=== PATIENT | male | born 1950 | race Caucasian/White ===

== ENCOUNTER 2017-04-25 12:07 | Emergency (ER) | payer OTHER ==
[~2017-04-25] VITALS: Ht 167.6 cm; Wt 96.0 kg
[~2017-04-25 12:07] MED LIST: ALLO300T2 PO; AMLO-110 PO; ASPCH81 PO; CLOP1TAB15 PO; CRG625 PO; FERR325T51 PO; GLC/500 PO; HMLI SC; INSUINJ; ISOS30TA3 PO; LOSA1TAB PO; LPT20 PO; MULT-506 PO; NTRGSL/4 UT; OMEG10007 PO; PRLSR20 PO; ULT50X PO
[2017-04-25 12:15] VITALS: TEMP 36.5; Ht 167.6 cm; Wt 96.0 kg
[2017-04-25] MEDS ORDERED: ASPI-435 PO (12:29)
[2017-04-25] MEDS ORDERED: HMLNPUC SQ (12:29)
[2017-04-25] MEDS ORDERED: FRRS300 PO (12:29)
[2017-04-25] MEDS ORDERED: INSU100I SQ (12:29)
[2017-04-25] MEDS ORDERED: MoRPHine SULFATE 4 MG/ML 1 ML CARP\\VIAL IV STA (13:31)
[2017-04-25 14:25] LABS: BASO % 0.5 %; BASO ABS # 0.04 K/uL (0-0.2); COMPLETE YES; EOS % 4.4 %; HEMATOCRIT 33.9 % (42-52); IG% 0.3 %; LYMPH % 28.2 %; LYMPH ABS # 2.23 K/uL (1.2-3.4); MEAN CELL VOLUME 95.2 fL (80-100); MEAN CORPUSCULAR HEMOGLOBIN 33.7 pg (25-34); MEAN CORPUSCULAR HGB CONC 35.4 g/dl (32-36); MEAN PLATELET VOLUME 10.3 fL (7.4-10.4); MONO % 7.7 %; NEUT % 58.9 %; PLATELET COUNT 110 K/uL (130-400); RED BLOOD COUNT 3.56 M/uL (4.7-6.1); WHITE BLOOD COUNT 7.91 K/uL (4.8-10.8)
[2017-04-25] MEDS ORDERED: OPTIRAY 320 IV PRN (14:30)
[2017-04-25 14:41] LABS: BUN/CREATININE RATIO 17.9 (10-20); CALCIUM 9.1 mg/dl (8.5-10.1); CREATININE 1.5 mg/dl (0.60-1.40); POTASSIUM 4.6 mmol/L (3.5-5.1)
[2017-04-25 14:44] LABS: ALB/GLOB RATIO 1.1 (0.9-2)
[2017-04-25] MEDS ORDERED: SODIUM CHLORIDE 0.9% 500ML 500 ML IV STA (14:54)
--- NOTE | 2017-04-25 15:41 | DIAGNOSTIC IMAGING REPORT ---
LUMBAR SPINE CT CT DOSE: HISTORY: Back pain TECHNIQUE: Multiaxial CT images of the lumbar spine were performed and reformatted in the sagittal and coronal plane without the use of contrast. COMPARISON: None. FINDINGS: No fractures. No subluxation. Paraspinal soft tissues are unremarkable. Mild disc space L5-S1. Mild to moderate facet osteoarthritis seen throughout the lumbar spine. Endplate osteophytes seen throughout the lumbar spine. IMPRESSION: No fractures within the lumbar spine. Electronically signed by: Salas Gómez M.D. 04/25/2017 3:40 PM Dictated Date/Time: 04/25/2017 3:34 PM
--- NOTE | 2017-04-25 15:49 | DIAGNOSTIC IMAGING REPORT ---
Abdomen and pelvis CTA for AORTIC DISSECTION CT DOSE: 744.67 mGy.cm HISTORY: Back pain. TECHNIQUE: Multiaxial CT images of the abdomen and pelvis were performed both before and after the intravenous administration of contrast to evaluate the aorta. Maximal intensity projection images were also obtained. COMPARISON STUDY: None. FINDINGS: Abdominal aorta is normal in course and caliber. No evidence for an aortic dissection. No significant stenosis within the celiac, right renal, mesenteric, or iliac arteries. There is approximately 80% stenosis at the takeoff of the main left renal artery. There is also a smaller accessory left renal artery which feeds the lower pole. Moderate atherosclerotic plaque within the abdominal aorta. Bilateral cortical renal scarring/thinning. There a few subcentimeter bilateral renal hypodense lesions within largest on the right measuring 8 mm. These are too small to characterize but favor cysts. No hydronephrosis. Normal bladder. The lung bases are clear. Cholecystectomy. The liver, pancreas, spleen, and adrenal glands are unremarkable. No retroperitoneal lymphadenopathy. Colonic diverticulosis. No bowel wall thickening or obstruction. Normal appendix. IMPRESSION: 1. Normal caliber abdominal aorta with no evidence for dissection. 2. Proximal left renal artery stenosis. 3. No bowel wall thickening or obstruction. 4. Colonic diverticulosis. Electronically signed by: Salas Gómez M.D. 04/25/2017 3:48 PM Dictated Date/Time: 04/25/2017 3:41 PM
[2017-04-25] MEDS ORDERED: ONDANSETRON INJ 2 MG/ML 2 ML VIAL IV STA (16:02)
[2017-04-25] MEDS ORDERED: HYDROCODONE/ACETAMOPHEN 5/325MG TAB PO STA (16:33)
[2017-04-25 16:38] VITALS: BP 145/60; PULSE 63; O2SAT 94
--- NOTE | 2017-04-25 16:41 | EMERGENCY ROOM VISIT NOTE ---
History First contact with patient: 13:12 Chief Complaint: BACK PAIN Stated Complaint: BAD BACK PAIN ON RIGHT SIDE History of Present Illness The patient is a 66 year old male who presents to the Emergency Room with complaints of low back pain. He states he has been having mild low back pain for several months, but states this pain became more severe over the past few days. He denies any trauma, falls, heavy lifting or twisting-type injuries. He states the pain is in the center of his back and to the right, worse with movement in certain positions, better with rest, sharp and stabbing, 10/10. He has taken Tylenol for the pain with minimal relief. He has not tried any other medications or therapies. He states he has had pain like this in the past which has usually gotten better on its own and has never been this severe. Patient also complains of some right-sided abdominal discomfort and bloating that started yesterday, as well as occasional nausea.. He reports a history of a right inguinal hernia. He denies any chest pain, shortness of breath, palpitations, dizziness or passing out, numbness or tingling in the legs, weakness in the legs, saddle paresthesias, bowel or bladder dysfunction, dysuria /hematuria, or urinary frequency. Review of Systems A complete 10 point review of systems was reviewed with the patient with pertinent positives and negatives as per history of present illness. All else were negative. Past Medical/Surgical History Medical Problems: (1) LEBRON inhibitor intolerance (2) Asthma (3) Beta-blockers contraindicated (4) Bilateral carotid artery disease (5) Cerebrovascular disease, arteriosclerotic, post-stroke (6) Chest pain (7) CKD (chronic kidney disease), stage III (8) Diabetes (9) Dyslipidemia (10) GERD (gastroesophageal reflux disease) (11) Gout (12) Heart disease (13) HTN (hypertension) (14) Hypertension (15) Obesity (BMI 30.0-34.9) Surgical Problems: (1) H/O colonoscopy (2) H/O esophagogastroduodenoscopy (3) S/P angioplasty with stent (4) S/P hernia repair (5) S/P laparoscopic cholecystectomy Family History Cancer FATHER MOTHER Diabetes mellitus GRANDFATHER GRANDMOTHER FHx: heart disease Hypertension Social History Smoking Status: Never Smoker Marital Status: in relationship Housing Status: lives with significant other Current/Historical Medications Scheduled Allopurinol (Zyloprim), 300 MG PO HS Amlodipine (Norvasc), 5 MG PO QAM Aspirin (Aspirin 81), 81 MG PO QAM Atorvastatin (Atorvastatin Calcium), 20 MG PO HS Carvedilol (Carvedilol), 6.25 MG PO BID Clopidogrel (Plavix), 75 MG PO QAM Diazepam (Valium), 5 MG PO TID Ferrous Sulfate (Ferrous Sulfate), 325 MG PO BID Fish Oil ([place]-3), 1 CAP PO BID Insulin Human NPH (Humulin N), UNITS SQ UD Insulin Lispro (Human) (Humalog), UNITS SQ UD Isosorbide Mononitrate Ext Rel (Imdur Ext Rel), 30 MG PO QAM Losartan Potassium (Cozaar), 25 MG PO QAM Metformin Hcl (Glucophage), 500 MG PO QID Multivitamin (Multivitamin), 1 TAB PO QAM Omeprazole (Prilosec), 20 MG PO NOON Scheduled PRN Hydrocodone/Acetaminophen 5MG/325MG ([place] 5MG/325MG), 1 TABLET PO Q4H PRN for Pain Nitroglycerin (Nitrostat), 0.4 MG UT UD PRN for Chest Pain Tramadol HCl (Tramadol HCl), 50 MG PO Q6H PRN for Pain Allergies Coded Allergies: LEBRON Inhibitors (Verified Allergy, Unknown, COUGH, 04/25/17) Physical Exam Vital Signs Date Time Temp Pulse Resp B/P (MAP) Pulse Ox O2 Delivery O2 Flow Rate FiO2 04/25/17 16:38 63 18 145/60 94 Room Air 04/25/17 16:01 53 16 141/57 95 Room Air 04/25/17 15:25 59 18 141/57 94 Room Air 04/25/17 14:53 49 Room Air 04/25/17 14:37 50 04/25/17 12:15 36.5 100 18 130/60 96 Room Air Physical Exam CONSTITUTIONAL: No acute distress, but appears to be in some pain. Nontoxic- appearing, well-hydrated, and well nourished. Alert and oriented X 4 with normal affect. HEENT: Normocephalic, atraumatic. Pupils equal, round and reactive to light, EOMI. TMs normal. Pharynx normal. Moist mucous membranes. NECK: Supple, full active range of motion without discomfort. RESPIRATORY: Clear to auscultation bilaterally with no wheezing, crackles, rhonchi or stridor. Equal expansion bilaterally. CARDIOVASCULAR: Regular rate and rhythm, 3/6 systolic murmur, no rubs or gallops. Normal peripheral perfusion. No pitting edema. GASTROINTESTINAL: Slightly firm, distended, tender to the right abdomen. No palpable mass, no palpable hernia. Hypoactive bowel sounds. MUSCULOSKELETAL: Full range of motion of all joints without discomfort. No midline tenderness or step-offs of the lumbar spine. Mild tenderness to palpation of the right lumbar paraspinous muscles, no visible spasm noted. Negative straight leg raise bilaterally. INTEGUMENTARY: No rash or other significant dermatologic conditions noted. NEUROLOGIC: Cranial nerves II-XII grossly intact. No focal neurologic deficits noted. Normal strength, normal sensation, normal 2+ patellar and Achilles deep tendon reflexes bilaterally, normal gait. Medical Decision & Procedures ER Provider Diagnostic Interpretation: Abdomen and pelvis CTA for AORTIC DISSECTION CT DOSE: 744.67 mGy.cm HISTORY: Back pain. TECHNIQUE: Multiaxial CT images of the abdomen and pelvis were performed both before and after the intravenous administration of contrast to evaluate the aorta. Maximal intensity projection images were also obtained. COMPARISON STUDY: None. FINDINGS: Abdominal aorta is normal in course and caliber. No evidence for an aortic dissection. No significant stenosis within the celiac, right renal, mesenteric, or iliac arteries. There is approximately 80% stenosis at the takeoff of the main left renal artery. There is also a smaller accessory left renal artery which feeds the lower pole. Moderate atherosclerotic plaque within the abdominal aorta. Bilateral cortical renal scarring/thinning. There a few subcentimeter bilateral renal hypodense lesions within largest on the right measuring 8 mm. These are too small to characterize but favor cysts. No hydronephrosis. Normal bladder. The lung bases are clear. Cholecystectomy. The liver, pancreas, spleen, and adrenal glands are unremarkable. No retroperitoneal lymphadenopathy. Colonic diverticulosis. No bowel wall thickening or obstruction. Normal appendix. IMPRESSION: 1. Normal caliber abdominal aorta with no evidence for dissection. 2. Proximal left renal artery stenosis. 3. No bowel wall thickening or obstruction. 4. Colonic diverticulosis. ----- LUMBAR SPINE CT CT DOSE: HISTORY: Back pain TECHNIQUE: Multiaxial CT images of the lumbar spine were performed and reformatted in the sagittal and coronal plane without the use of contrast. COMPARISON: None. FINDINGS: No fractures. No subluxation. Paraspinal soft tissues are unremarkable. Mild disc space L5-S1. Mild to moderate facet osteoarthritis seen throughout the lumbar spine. Endplate osteophytes seen throughout the lumbar spine. IMPRESSION: No fractures within the lumbar spine. Laboratory Results 04/25/17 14:15 Red Blood Count 3.56, Mean Corpuscular Volume 95.2, Mean Corpuscular Hemoglobin 33.7, Mean Corpuscular Hemoglobin Concent 35.4, Mean Platelet Volume 10.3, Neutrophils (%) (Auto) 58.9, Lymphocytes (%) (Auto) 28.2, Monocytes (%) (Auto) 7.7, Eosinophils (%) (Auto) 4.4, Basophils (%) (Auto) 0.5, Neutrophils # (Auto) 4.66, Lymphocytes # (Auto) 2.23, Monocytes # (Auto) 0.61, Eosinophils # (Auto) 0.35, Basophils # (Auto) 0.04 04/25/17 14:15 Test 04/25/17 14:15 White Blood Count 7.91 K/uL (4.8-10.8) Red Blood Count 3.56 M/uL (4.7-6.1) Hemoglobin 12.0 g/dL (14.0-18.0) Hematocrit 33.9 % (42-52) Mean Corpuscular Volume 95.2 fL (80-100) Mean Corpuscular Hemoglobin 33.7 pg (25-34) Mean Corpuscular Hemoglobin Concent 35.4 g/dl (32-36) Platelet Count 110 K/uL (130-400) Mean Platelet Volume 10.3 fL (7.4-10.4) Neutrophils (%) (Auto) 58.9 % Lymphocytes (%) (Auto) 28.2 % Monocytes (%) (Auto) 7.7 % Eosinophils (%) (Auto) 4.4 % Basophils (%) (Auto) 0.5 % Neutrophils # (Auto) 4.66 K/uL (1.4-6.5) Lymphocytes # (Auto) 2.23 K/uL (1.2-3.4) Monocytes # (Auto) 0.61 K/uL (0.11-0.59) Eosinophils # (Auto) 0.35 K/uL (0-0.5) Basophils # (Auto) 0.04 K/uL (0-0.2) RDW Standard Deviation 47.3 fL (36.4-46.3) RDW Coefficient of Variation 13.8 % (11.5-14.5) Immature Granulocyte % (Auto) 0.3 % Immature Granulocyte # (Auto) 0.02 K/uL (0.00-0.02) Anion Gap 9.0 mmol/L (3-11) Est Creatinine Clear Calc Drug Dose 51.8 ml/min Estimated GFR () 55.0 Estimated GFR (Non- 47.5 BUN/Creatinine Ratio 17.9 (10-20) Lactic Acid Level 1.7 mmol/L (0.4-2.0) Calcium Level 9.1 mg/dl (8.5-10.1) Total Bilirubin 0.9 mg/dl (0.2-1) Aspartate Amino Transf (AST/SGOT) 23 U/L (15-37) Alanine Aminotransferase (ALT/SGPT) 34 U/L (12-78) Alkaline Phosphatase 70 U/L (45-117) Total Protein 7.3 gm/dl (6.4-8.2) Albumin 3.8 gm/dl (3.4-5.0) Globulin 3.5 gm/dl (2.5-4.0) Albumin/Globulin Ratio 1.1 (0.9-2) Medications Administered Medications (Trade) Dose Ordered Sig/Guero Route Start Time Stop Time Status Last Admin Dose Admin Morphine Sulfate (MoRPHine SULFATE INJ) 4 mg NOW STAT IV 04/25/17 13:31 04/25/17 13:39 DC 04/25/17 13:31 4 MG Sodium Chloride 500 ml @ 999 mls/hr Q31M STAT IV 04/25/17 14:54 04/25/17 15:24 DC 04/25/17 15:25 999 MLS/HR Ondansetron HCl (Zofran Inj) 4 mg NOW STAT IV 04/25/17 16:02 04/25/17 16:03 DC 04/25/17 16:06 4 MG Acetaminophen/ Hydrocodone Bitart ([place] 5/325 Tab) 1 tab NOW STAT PO 04/25/17 16:33 04/25/17 16:35 DC 04/25/17 17:06 1 TAB Acetaminophen/ Hydrocodone Bitart ([place] 5/325mg Home Pack) 1 homepack UD ONCE PO 04/25/17 16:45 04/25/17 16:46 DC 04/25/17 17:06 1 HOMEPACK Medical Decision CC: Patient presenting with complaint of low back pain Interpretation of Labs: No leukocytosis, mild anemia, no significant electrolyte abnormalities, renal insufficiency creatinine 1.5, normal liver enzymes, normal lipase. No UTI. Normal lactic acid. Differential Diagnosis: Includes, but not limited to lumbar sprain, strain, radiculopathy, sciatica, muscle spasm, UTI, pyelonephritis, AAA, aortic dissection, intra-abdominal infection, abdominal hernia, mesenteric ischemia Medication Reconciliation: I attest that I have personally reviewed the patient' s current medication list. Vital signs review: I reviewed the patient's vital signs and interpret them as follows: T: Afebrile; BP: Hypertensive; HR: tachycardia, resolved on multiple rechecks; RR: WNL; Pulse Ox: WNL on RA. Blood pressure screening: The patient was found to have an elevated blood pressure and was referred to their primary doctor for recheck and further treatment. Summary: Patient was evaluated at bedside, history of physical exam performed. Patient is alert and oriented, no acute distress, resting in the stretcher. He does appear to be in significant discomfort with movements of sitting up and twisting to the right. There is no lumbar spine tenderness or step-off, no evidence of trauma, no palpable or visible muscle spasm. The abdomen is slightly firm and distended diffusely, tender in the right upper and lower quadrant and midline, with some involuntary guarding. There is normal strength, sensation, reflexes in the lower extremities bilaterally. Perianal sensation intact. Rectal exam deferred. Patient's history seems most consistent with lumbar strain, however in the setting of back/flank pain with his abdominal exam findings, I'm also concerned for possible aortic etiology. Orders were placed at bedside for labs, UA, IV pain medication, CT of the lumbar spine and CTA of the abdomen/pelvis. Patient discussed with Dr. Huber, who agrees with my assessment and plan. Labs reviewed, notable for moderate renal insufficiency. Lactic acid is normal , pointing away from an ischemic process. CTA of the abdomen and pelvis is negative for AAA or aortic dissection pattern, notable stenosis of the left renal artery with collateral flow. No acute abdominal abnormalities. CT of the lumbar spine shows some degenerative changes without any acute vertebral fractures, subluxation, or disc herniation. Patient reassessed multiple times throughout ED stay, he had great improvement in his back pain after morphine, and has improved mobility since control of his pain. Patient was updated on all results and plan for discharge. He was instructed to follow closely with his PCP, specifically for further management of his back pain and also to continue addressing his renal insufficiency. Pain control was considered with both NSAIDs and steroids, however these are not good options due to patient's hypertension, renal insufficiency, and diabetes. Patient was provided with small prescriptions of [place] and Valium to manage his pain and potential muscle spasms. Patient was also instructed in nonpharmacologic treatments for his back pain, as well as exercises and stretches to improve his mobility. Patient was instructed to discuss physical therapy with his PCP as well, he verbalized understanding Patient was discharged home in stable condition ambulatory. Impression Primary Impression: Strain of lumbar region Additional Impression: Right low back pain Departure Information Dispostion Home / Self-Care Condition GOOD Prescriptions Diazepam (Valium) 5 Mg Tab 5 MG PO TID for Muscle Spasms for 5 Days, #15 TAB Prov: Aliyah Alanis, GLUING MACHINE FEEDER 04/25/17 Hydrocodone/Acetaminophen 5MG/325MG ([place] 5MG/325MG) Tab 1 TABLET PO Q4H Y for Pain for 3 Days, #18 TAB For Initial Treatment Prov: Aliyah Alanis, GLUING MACHINE FEEDER 04/25/17 Referrals Bradley Manley M.D.([facility]) (PCP) Patient Instructions ED Back Care Tips, ED Exercises Lumbar Muscles, ED Insufficiency Renal, ED Spasm Back No Trauma, My [facility] Additional Instructions You have been treated in the Emergency Department for Back Pain. You have received pain medicine in the emergency department which impairs your ability to operate a vehicle. It is illegal for you to drive after receiving these medicines. CT scan of your abdomen and lumbar spine do not show any acute abnormalities. You do have degenerative changes in your her lumbar spine. You have been prescribed [place] to be used for pain control. This is a narcotic medication. You cannot drive or consume alcohol while on this medicine. This medicine should only be used for pain that cannot be controlled with over-the- counter pain medicines. You have been prescribed Valium 1 tablet orally, three times per day. Take your first dose at bedtime as it can make you drowsy. Do not drive or consume alcohol while on this medication. Always take all medications as prescribed. Be sure to take the [place] and Valium at least 2 hours apart, as these medications can cause increased drowsiness when taken together. Use a heating pad to the area of pain several times throughout the day to help relieve pain. STOP your metformin for 2 days. You may resume taking her metformin on 2016. Keep your scheduled follow-up appointment with your PCP tomorrow to discuss ongoing management of your back pain. You should discuss your renal insufficiency with your PCP, as well as the possibility of referral to a bleach boiler puller. You should also discuss physical therapy referral with your PCP. Return to the Emergency Department if your current symptoms worsen despite treatment course outlined above, or if you develop any of the following symptoms : intractable pain despite above treatment course, loss of control of your bowel or bladder, numbness or tingling in your groin, or development of a fever. Problem Qualifiers Primary Impression: Strain of lumbar region Encounter type: initial encounter Qualified Codes: S39.012A - Strain of muscle, fascia and tendon of lower back, initial encounter Additional Impression: Right low back pain Chronicity: unspecified Sciatica presence: without sciatica Qualified Codes : M54.5 - Low back pain
[2017-04-25] MEDS ORDERED: NORCO 5/325MG HOME PACK PO ONE (16:45)
[2017-04-25] MEDS ORDERED: DIAZ-165 PO (16:47)
[2017-04-25] MEDS ORDERED: HYDR-5688 PO (16:47)
--- NOTE | 2017-04-25 16:58 | EMERGENCY ROOM VISIT NOTE ---
ED Visit Note First contact with patient: 13:12 I seen and examined the patient at bedside. Patient's evaluation and all results were discussed with nurse practitioner. Agree with plan as outlined by her. I discussed all results and the plan of care with the patient and all questions were answered bedside. Discussed again need for close follow-up with family doctor given mild renal insufficiency and renal artery stenosis noted on imaging. Discussed with them possible need for nephrology evaluation. Patient' s PCP appointment tomorrow. We'll avoid anti-inflammatories and steroids given mild renal insufficiency. Encouraged patient to drink water only. Discussed symptoms to watch and return for, he verbalized understanding was agreeable with plan.
== END 2017-04-25 17:10 | disposition home or self-care (01) ==
LOC: C.EDB 12:08 → C.EDD 17:10
DX: S39.012A Strain of muscle, fascia and tendon of lower back, initial encounter (principal); X58.XXXA Exposure to other specified factors, initial encounter; M54.5 Low back pain; I12.9 Hypertensive chronic kidney disease with stage 1 through stage 4 chronic kidney disease, or unspecified chronic kidney disease; N18.3 Chronic kidney disease, stage 3 (moderate); E11.9 Type 2 diabetes mellitus without complications; R78.5 Finding of other psychotropic drug in blood; E78.5 Hyperlipidemia, unspecified; K21.9 Gastro-esophageal reflux disease without esophagitis; I51.9 Heart disease, unspecified; I77.89 Other specified disorders of arteries and arterioles; M10.9 Gout, unspecified; J45.909 Unspecified asthma, uncomplicated; Z86.73 Personal history of transient ischemic attack (TIA), and cerebral infarction without residual deficits; Z98.61 Coronary angioplasty status; Z90.49 Acquired absence of other specified parts of digestive tract; Z98.890 Other specified postprocedural states; Z79.4 Long term (current) use of insulin; Z79.82 Long term (current) use of aspirin; Z79.84 Long term (current) use of oral hypoglycemic drugs; Z79.899 Other long term (current) drug therapy; Z88.8 Allergy status to other drugs, medicaments and biological substances; Z80.9 Family history of malignant neoplasm, unspecified; Z83.3 Family history of diabetes mellitus; Z82.49 Family history of ischemic heart disease and other diseases of the circulatory system

== ENCOUNTER 2020-12-31 11:37 | Inpatient (IN) ==
--- OUTSIDE RECORDS SUMMARY | 2020-12-31 11:40 | External Medical Summary | Continuity of Care Document ---
:1950 Author Name Veronique Ly Address Unavailable Unavailable , Care Team Providers Name Role Phone Filiberto Mosquera [email or web address] [place] Problems Active medical history not documented Allergies and Adverse Reactions No Known Drug Allergies (Allergy) Medications Fish Oil CAPS Refills: 0 Viagra TABS Refills: 0 HumaLOG SOLN Refills: 0 HumuLIN N SUSP Refills: 0 Tapazole TABS Refills: 0 Plavix 75 MG Oral Tablet; TAKE 1 TABLET DAILY. Refills: 0 Folgard TABS Refills: 0 Aspirin 81 MG TABS Refills: 0 Toprol XL 100 MG Oral Tablet Extended Release 24 Hour; TAKE 1 TABLET DAILY. Refills: 0 PriLOSEC 20 MG CPDR; TAKE 1 CAPSULE DAILY. Refills: 0 hydroCHLOROthiazide 25 MG Oral Tablet; TAKE 1 TABLET DAILY. Refills: 0 Norvasc 5 MG Oral Tablet; TAKE 1 TABLET DAILY. Refills: 0 Procedures Procedures not documented Immunizations Immunizations not documented Interventions Discussion/SummaryPatient is asymptomatic from a cardiovascular standpoint. He is at goal for heart rate and blood pressure. He'll continue his current medical regimen without change. I'll follow up with the patient in 6 months. \highlight0 Plan of Treatment Planned Observations Planned Goals not documented Results No Known Results Results not documented Encounters Appointment; Tim Mosquera M.D. 28-Jan-2011 10:45 Encounter Diagnosis: Problem not documented
[2020-12-31] MEDS ORDERED: OPTIRAY 320 125ml IV ONE (12:25)
--- NOTE | 2020-12-31 12:27 | Emergency Department Note ---
Impression & Plan Left sided numbness, Weakness, Hypoglycemia, History of CVA (cerebrovascular accident) ED Provider Note NAME: KAREN GODFREY AGE: 70 SEX: M : 1950 ARRIVES VIA: Ambulance INFORMANT: [Patient][ems] ED PROVIDER(S): [Ruddy Christianson MD] Provider contact was at 1210. CHIEF COMPLAINT: Numbness HISTORY OF PRESENT ILLNESS: The patient is a 70-year-old male who presents with left sided numbness and difficulty with balance. He was initially thought to be hypoglycemic however, with further conversation, the hypoglycemia was early in the morning, not currently. Patient states that he did overdo it a bit yesterday removing snow. His sugar got low and he was sweaty. Patient states that last night, basically early this morning, around 3 AM he woke up on the floor. He felt his sugar was likely low and drank orange juice. He went back to bed. Patient woke up then around 9 AM, just over 3 hours ago. His sugar was 40. The patient had juice and ate and states that very shortly thereafter, he noticed that his left arm and fingers were numb. His left face felt numb. He felt off balance. Had a hard time walking and seemed to be stumbling. He felt his left side might be weak. Patient was concerned for stroke as he has had one in the past, he called EMS and presents for evaluation. The patient does believe his symptoms are somewhat better than earlier. It has been about 3 hours and 10 minutes since his last known well time. He does take Coumadin, he is unsure why. His last stroke seems to have involved the posterior circulation of the brain. There has been no cough or cold or chest pain. No shortness of breath. He has not been vomiting, no diarrhea, no known Covid exposures. REVIEW OF SYSTEMS: See HPI for pertinent positives and negatives. A total of ten systems were reviewed and were otherwise negative. PMHx/PSHx: See Below SOCIAL HISTORY: See Below. PHYSICAL EXAM: GENERAL: Patient is in no acute distress. HEENT: No acute trauma, normocephalic atraumatic, mucous membranes moist, no nasal congestion, no scleral icterus. NECK: No stridor, no adenopathy, no meningismus, trachea is midline. LUNGS: Clear to auscultation bilaterally, no wheeze, no rhonchi, breath sounds equal. HEART: 2/6 systolic murmur, slightly irregular rhythm, normal rate. ABDOMEN: Soft, nontender, bowel sounds positive, no hernias, no peritonitis. EXTREMITIES: No cyanosis or edema, full range of motion of all the joints without pain or difficulty, no signs for acute trauma. NEUROLOGIC: Oriented x 3. Patient does not have any facial droop or speech slur. There is some very subtle left leg drift with testing. No cerebellar dysfunction to the upper or lower extremities. There is subtle left upper extremity drift with testing. SKIN: No rash, no jaundice, no diaphoresis. DIFFERENTIAL DIAGNOSIS: Infection, dehydration, metabolic abnormality, hypo/hyperglycemia, electrolyte disturbance, anemia, hypoxia, cardiac sources, intracerebral event, toxicologic issues, stroke, TIA, as well as other pathologies. EMERGENCY DEPARTMENT COURSE/PROCEDURES: ECG: Indication was possible stroke. The ECG shows a normal sinus rhythm with LVH. The rate is 61. There is some nonspecific ST change. No ST elevation, no PVCs. The QTc is 436. Continuous Cardiac Monitoring: An order was placed for continuous cardiac monitoring. The monitor shows a rate of 77 with normal sinus rhythm. Critical Care Note: I have personally spent 42 minutes of critical care time in the direct management of this patient. This includes bedside care, inte rpretation of diagnostic studies, and testing, discussion with consultants, patient, and family members, and other required patient management activities. This 42 minutes is in excess of all separately billable procedures. MEDICAL DECISION MAKING: There is no leukocytosis or concerning anemia. There is a normal platelet count. INR is elevated at 2.6, consistent with his Coumadin use. Creatinine mildly high at 1.44. Magnesium low at 1.5. No worrisome liver enzyme elevation. Urinalysis did not show findings of infection. Covid testing returned negative. Brain CT showed some older findings, no acute bleed or mass- effect. CT angio of the brain and neck did not show any significant stenosis or arterial occlusion. ECG showed a sinus rhythm, no acute ischemia. Cardiac enzyme testing x1 was not consistent with acute cardiac injury. Chest film did not show pneumonia or CHF. On exam, the patient did have some left upper and lower extremity drift. No speech slur or facial droop. The patient received IV saline, 500 cc. He was given IV magnesium. He received IV hydralazine for his persistently elevated blood pressure. The patient did start to feel hypoglycemic during his ED stay. His sugar was tested and recorded low, he was allowed to eat. By nursing report, the patient did pass his dysphagia screen. Repeat sugar value was acceptable. Because of his presentation, a stroke alert was called by me. He was seen by the stroke neurologist from [place]. A small stroke was thought likely as a cause for his presentation, admission was recommended. He was not a candidate for TPA given his Coumadin use and symptom onset over 3 hours ago. The patient is aware of his findings, he understands the need for hospitalization. I did speak with case management. The on-call hospitalist was consulted. Past Med/Surg History Medical History LEBRON inhibitor intolerance "cough" CAD (coronary artery disease) Cerebrovascular disease, arteriosclerotic, post-stroke "cerebellar stroke 1993" Chronic anticoagulation CKD (chronic kidney disease), stage III DM type 1 (diabetes mellitus, type 1) Dyslipidemia GERD (gastroesophageal reflux disease) Gout Hypertension Obesity (BMI 30.0-34.9) PAF (paroxysmal atrial fibrillation) Surgical History H/O colonoscopy H/O esophagogastroduodenoscopy S/P angioplasty with stent per [facility] Cardiology note: Non-ST segment elevation myocardial infarction in 1996 undergoing PTCA of the right coronary artery in February of 1997 followed by recurrent symptoms PTCA and stenting of the right coronary artery and mid left anterior descending in April 1997. Repeat coronary intervention 1999, PCI to the LCX OM. Unstable angina presentation in January 2015 s/p PCI of the mid LAD with a NORMAN. S/P hernia repair S/P laparoscopic cholecystectomy Family History (Updated 12/31/20 @ 15:51 by MAURIZOI Potts) Father Lung cancer Mother Lung cancer Social History Smoking Status: Never smoker Hx Alcohol Use: No Hx Substance Use: No Preferred Language: [place] Outsole Skiver Required: No Beliefs That Will Affect Care: None Current Living Situation: Alone Other Information That Helps Us Care for You: No Feels Safe at Home: Yes Safety Concerns: Feels Safe At This Time Assistive Devices: Denture - Upper, Denture - Lower and Glasses Allergies Allergies Allergy/AdvReac Type Severity Reaction Status Date / Time LEBRON Inhibitors Allergy Unknown COUGH Verified 12/31/20 14:02 Home Meds Home Medications Medication Instructions Recorded Confirmed allopurinol 300 mg PO HS 12/31/20 12/31/20 amlodipine 2.5 mg PO QAM 12/31/20 12/31/20 atorvastatin 20 mg PO HS 12/31/20 12/31/20 carvedilol 3.125 mg PO BID 12/31/20 12/31/20 cholecalciferol (vitamin D3) 10 mcg PO DAILY 12/31/20 12/31/20 clopidogrel 75 mg PO QAM 12/31/20 12/31/20 cyanocobalamin (vitamin B-12) 1,000 mcg PO QAM 12/31/20 12/31/20 [Vitamin B-12] ferrous sulfate 325 mg PO BID 12/31/20 12/31/20 gabapentin 300 mg PO HS 12/31/20 12/31/20 insulin NPH isoph U-100 human 60 unit SUBCUT DAILYBD 12/31/20 12/31/20 [Novolin N NPH U-100 Insulin] insulin aspart U-100 [Novolog 10 sliding scale dose SUBCUT 12/31/20 12/31/20 U-100 Insulin aspart] DAILYBD isosorbide mononitrate 60 mg PO QDL 12/31/20 12/31/20 losartan 25 mg PO QAM 12/31/20 12/31/20 metformin 500 mg PO QID 12/31/20 12/31/20 nitroglycerin 0.4 mg SUBLINGUAL Q5M PRN 12/31/20 12/31/20 pantoprazole 20 mg PO QDL 12/31/20 12/31/20 warfarin See Rx Instructions .ROUTE .COMPLEX 12/31/20 12/31/20 Results & Data (ED) Vital Signs Vital Signs - 24 hr 12/31/20 11:27 12/31/20 12:03 12/31/20 12:35 Temperature 36.6 C Temperature Source Oral Pulse Rate 64 58 L 69 Pulse Rate from SpO2 Sensor 58 L 67 Respiratory Rate 16 16 20 Respiratory Effort / Characteristics Non-Labored Spontaneous Respiratory Depth Normal Respiratory Pattern Regular Blood Pressure 213/83 H 176/74 H 206/75 H Blood Pressure Mean 126 108 118 Blood Pressure Position Lying Pulse Oximetry 97 98 100 Oxygen Delivery Method Room Air Sepsis Recent Fever Within 48 Hours No Sepsis New/Unexplained Change in Mental Status N/A Sepsis Action Taken by Nursing No Action Required 12/31/20 12:49 12/31/20 13:00 12/31/20 14:01 Temperature Temperature Source Pulse Rate 60 58 L 59 L Pulse Rate from SpO2 Sensor 59 L 57 L 60 Respiratory Rate 17 21 20 Respiratory Effort / Characteristics Respiratory Depth Respiratory Pattern Blood Pressure 197/73 H 203/77 H 173/61 H Blood Pressure Mean 114 119 98 Blood Pressure Position Pulse Oximetry 100 99 95 Oxygen Delivery Method Sepsis Recent Fever Within 48 Hours Sepsis New/Unexplained Change in Mental Status Sepsis Action Taken by Jail Medications Current Medication List: was personally reviewed by me Laboratory Data Attestation: I reviewed the patient's lab results. Result diagrams: 12/31/20 11:54 12/31/20 11:54 Lab Results 12/31/20 12/31/20 12/31/20 Range/Units 11:54 11:54 11:54 WBC 8.10 (4.8-10.8) K/uL RBC 3.73 L (4.7-6.1) M/uL Hgb 12.7 L (14.0-18.0) g/dL Hct 36.1 L (42-52) % MCV 96.8 (80-100) fL MCH 34.0 (25-34) pg MCHC 35.2 (32-36) g/dL RDW Std Deviation 49.5 H (36.4-46.3) fL RDW Coeff of Guillermo 14.0 (11.5-14.5) % Plt Count 132 (130-400) K/uL MPV 11.0 H (7.4-10.4) fL Immature Gran % (Auto) 0.2 % Neut % (Auto) 77.3 % Lymph % (Auto) 16.2 % [place] % (Auto) 5.2 % Eos % (Auto) 1.0 % Baso % (Auto) 0.1 % Neut # (Auto) 6.26 (1.4-6.5) K/uL Lymph # (Auto) 1.31 (1.2-3.4) K/uL [place] # (Auto) 0.42 (0.11-0.59) K/uL Eos # (Auto) 0.08 (0-0.5) K/uL Baso # (Auto) 0.01 (0-0.2) K/uL Immature Gran # (Auto) 0.02 (0.00-0.02) K/uL PT 24.4 H (9.0-12.0) Seconds INR 2.6 H (0.9-1.1) APTT 33.6 H (21.0-31.0) Seconds PTT Ratio 1.3 Sodium 137 (136-145) mmol/L Potassium 4.3 (3.5-5.1) mmol/L Chloride 107 (98-107) mmol/L Carbon Dioxide 25 (21-32) mmol/L Anion Gap 5.0 (3-11) BUN 14 (7-18) mg/dl Creatinine 1.44 H (0.6-1.4) mg/dl Est Cr Clr Drug Dosing 52.8 ml/min Est GFR ( Amer) 56.2 Est GFR (Non-Af Amer) 48.5 BUN/Creatinine Ratio 9.9 L (10-20) Glucose 151 H (70-99) mg/dl Calcium 9.4 (8.5-10.1) mg/dl Magnesium 1.5 L (1.8-2.4) mg/dl Total Bilirubin 1.2 H (0.2-1) mg/dl AST 28 (15-37) U/L ALT 30 (12-78) U/L Alkaline Phosphatase 76 (45-117) U/L Troponin I < 0.015 (0-0.045) ng/ml Total Protein 7.3 (6.4-8.2) gm/dl Albumin 3.5 (3.4-5.0) gm/dl Globulin 3.8 (2.5-4.0) gm/dl Albumin/Globulin Ratio 0.9 (0.9-2) Urine Color Urine Appearance (Clear) Urine pH (4.5-7.5) Ur Specific [place] (1.000-1.030) Urine Protein (Negative) Urine Glucose (UA) (Negative) Urine Ketones (Negative) Urine Blood (Negative) Urine Nitrite (Negative) Urine Bilirubin (Negative) Urine Urobilinogen (Negative) Ur Leukocyte Esterase (Negative) Urine WBC (Auto) (0-5) /hpf Urine RBC (Auto) (0-4) /hpf U Hyaline Cast (Auto) (0-5) /lpf U Epithel Cells (Auto) (0-5) /lpf Urine Bacteria (Auto) (Negative) Blood Type Antibody Screen 12/31/20 12/31/20 Range/Units 12:35 13:55 WBC (4.8-10.8) K/uL RBC (4.7-6.1) M/uL Hgb (14.0-18.0) g/dL Hct (42-52) % MCV (80-100) fL MCH (25-34) pg MCHC (32-36) g/dL RDW Std Deviation (36.4-46.3) fL RDW Coeff of Guillermo (11.5-14.5) % Plt Count (130-400) K/uL MPV (7.4-10.4) fL Immature Gran % (Auto) % Neut % (Auto) % Lymph % (Auto) % [place] % (Auto) % Eos % (Auto) % Baso % (Auto) % Neut # (Auto) (1.4-6.5) K/uL Lymph # (Auto) (1.2-3.4) K/uL [place] # (Auto) (0.11-0.59) K/uL Eos # (Auto) (0-0.5) K/uL Baso # (Auto) (0-0.2) K/uL Immature Gran # (Auto) (0.00-0.02) K/uL PT (9.0-12.0) Seconds INR (0.9-1.1) APTT (21.0-31.0) Seconds PTT Ratio Sodium (136-145) mmol/L Potassium (3.5-5.1) mmol/L Chloride (98-107) mmol/L Carbon Dioxide (21-32) mmol/L Anion Gap (3-11) BUN (7-18) mg/dl Creatinine (0.6-1.4) mg/dl Est Cr Clr Drug Dosing ml/min Est GFR ( Amer) Est GFR (Non-Af Amer) BUN/Creatinine Ratio (10-20) Glucose (70-99) mg/dl Calcium (8.5-10.1) mg/dl Magnesium (1.8-2.4) mg/dl Total Bilirubin (0.2-1) mg/dl AST (15-37) U/L ALT (12-78) U/L Alkaline Phosphatase (45-117) U/L Troponin I (0-0.045) ng/ml Total Protein (6.4-8.2) gm/dl Albumin (3.4-5.0) gm/dl Globulin (2.5-4.0) gm/dl Albumin/Globulin Ratio (0.9-2) Urine Color Yellow Urine Appearance Clear (Clear) Urine pH 7.0 (4.5-7.5) Ur Specific [place] 1.031 H (1.000-1.030) Urine Protein Negative (Negative) Urine Glucose (UA) Negative (Negative) Urine Ketones Negative (Negative) Urine Blood Trace H (Negative) Urine Nitrite Negative (Negative) Urine Bilirubin Negative (Negative) Urine Urobilinogen Negative (Negative) Ur Leukocyte Esterase Negative (Negative) Urine WBC (Auto) 0 (0-5) /hpf Urine RBC (Auto) 0-4 (0-4) /hpf U Hyaline Cast (Auto) 0 (0-5) /lpf U Epithel Cells (Auto) 5-10 H (0-5) /lpf Urine Bacteria (Auto) Negative (Negative) Blood Type A Positive Antibody Screen NEGATIVE Administered Medications Magnesium Sulfate/Dextrose (Magnesium Sulfate / D5w) 1 gm in 100 mls @ 50 mls/hr IV ONE ONE Stop: 12/31/20 20:29 Last Admin: 12/31/20 18:23 Dose: 50 mls/hr Documented by: [id number] Warfarin Sodium (Warfarin Sod 4 Mg Tab) 4 mg PO Q2D@1600 ISSAC Stop: 01/30/21 18:59 Last Admin: 12/31/20 19:08 Dose: 4 mg Documented by: [id number] Discontinued Medications Amlodipine Besylate (Amlodipine Besylate 5 Mg Tab) 2.5 mg PO NOW ONE Stop: 12/31/20 18:31 Last Admin: 12/31/20 19:08 Dose: 2.5 mg Documented by: [id number] Gadobutrol (Gadobutrol 65ml Vial) 10 ml IV ONCE ONE Stop: 12/31/20 17:02 Last Admin: 12/31/20 17:01 Dose: 10 ml Documented by: [id number] Hydralazine HCl (Hydralazine Hcl 20 Mg/Ml Vial) 5 mg IV NOW ONE Stop: 12/31/20 13:42 Last Admin: 12/31/20 14:17 Dose: 5 mg Documented by: [id number] Magnesium Sulfate/Dextrose (Magnesium Sulfate / D5w) 1 gm in 100 mls @ 100 mls/hr IV NOW STA Stop: 12/31/20 13:56 Last Infusion: 12/31/20 14:17 Dose: 0 mls/hr Documented by: [id number] Admin: 12/31/20 13:06 Dose: 100 mls/hr Documented by: [id number] Sodium Chloride (Nss 1000ml) 500 mls @ 999 mls/hr IV .Q31M ONE Stop: 12/31/20 13:27 Last Infusion: 12/31/20 14:18 Dose: 0 mls/hr Documented by: [id number] Admin: 12/31/20 13:06 Dose: 999 mls/hr Documented by: [id number] Ioversol (Optiray 320 125ml) 120 ml IV ONCE ONE Stop: 12/31/20 12:26 Last Admin: 12/31/20 12:25 Dose: 120 ml Documented by: [id number] Isosorbide Mononitrate (Isosorbide [place] Extended Rel 60 Mg Tabcr) 60 mg PO ONE ONE Stop: 12/31/20 18:31 Last Admin: 12/31/20 19:09 Dose: 60 mg Documented by: [id number] Losartan Potassium (Losartan Potassium 25 Mg Tab) 25 mg PO ONE ONE Stop: 12/31/20 18:31 Last Admin: 12/31/20 19:09 Dose: 25 mg Documented by: [id number] Imaging Data Radiologist's Impression: NONCONTRAST HEAD CT, HEAD CTA HISTORY: Left arm numbness. Stroke Like Symptoms TECHNIQUE: Multiaxial CT images of the head were performed both before and after the intravenous administration of contrast to evaluate the major cerebral vessels. Maximum intensity projection images were also obtained. A dose lowering technique was utilized adhering to the principles of ALARA. COMPARISON: None. FINDINGS: There is no mass, hematoma, midline shift, or acute infarct. Old i nfarct within the left cerebellar hemisphere. There is also an old lacunar infarct within the right cerebellar hemisphere. Visualized intracranial internal carotid arteries, distal vertebral arteries, and basilar artery are widely patent. There is no significant stenosis, occlusion, or aneurysm seen within the bilateral ACAs, MCAs, or track maintainer. The major dural venous sinuses appear patent. Mild to moderate calcified plaque within the bilateral carotid siphons. IMPRESSION: 1. No acute intracranial abnormality. 2. Old cerebellar infarcts. 3. No significant stenosis, occlusion, or aneurysm within the [place]. CT ANGIOGRAM OF THE NECK CLINICAL HISTORY: Strokelike symptoms. Left upper extremity numbness. COMPARISON STUDY: No priors. TECHNIQUE: Following the IV administration of 120 of Optiray 320, CT angiogram of the neck was performed from the aortic arch to the skull base. Images are reviewed in the axial, sagittal, and coronal planes. 3-D MIPS images are created and assessed. IV contrast was administered without complication. All me asurements were calculated based on NASCET criteria. A dose lowering technique was utilized adhering to the principles of ALARA. CT DOSE: 1255.07 mGy.cm FINDINGS: Thoracic aorta: There is atherosclerotic calcification of the thoracic aorta. Visualized portions of the thoracic aorta are normal in caliber. The aortic arch demonstrates standard 3-vessel anatomy. Right carotid arterial system: The right common carotid artery is widely patent, as are the right internal and external carotid arteries. Calcified plaque is noted in the carotid bulb. Left carotid arterial system: The left common carotid artery is widely patent, as are the internal and external carotid arteries. Calcified plaque is noted in the carotid bulb. Vertebral arteries: There is mild to moderate stenosis at the origin of the right vertebral artery. The vertebral arteries are otherwise widely patent in the neck and codominant. Subclavian arteries: Widely patent bilaterally. Intracranial vasculature: The imaged intracranial vessels at the skull base are patent. Jugular veins: Widely patent bilaterally. Brain parenchyma: Left cerebellar encephalomalacia is consistent with a remote insult. Lung apices: Partially visualized upper lobe lung parenchyma appears clear. Soft tissues: The visualized pharyngeal soft tissues are normal in appearance noting angiographic phase technique. The oropharyngeal airway appears widely patent. The salivary and thyroid glands are normal in appearance. No cervical lymphadenopathy is seen. Skeletal structures: The skeletal structures are osteopenic. The visualized calvarium at the skull base appears intact. The imaged cervical spine is maintained noting multilevel spondylosis. No lytic or blastic lesion is seen. IMPRESSION: 1. There is mild to moderate stenosis at the origin of the right vertebral artery. 2. Otherwise unremarkable CT angiogram of the neck. XR chest 1V portable HISTORY: Stroke Like Symptoms COMPARISON: Chest 10/05/2016. FINDINGS: No pneumothorax. No pleural effusions. The cardiac silhouette remains mildly enlarged. There is mild diffuse interstitial thickening which is likely chronic. No new focal lung consolidations to suggest pneumonia. No evidence for pulmonary edema. There are old, healed right-sided rib fractures. Stable punctate metallic density overlying the left lung apex. IMPRESSION: No significant change compared to the prior study. No acute process. Discharge Plan Visit Data Chief Complaint: Hypoglycemia ED Provider: Ruddy Christianson Discharge Problem: Left sided numbness, Weakness, Hypoglycemia, History of CVA (cerebrovascular accident) Patient Disposition: Admitted As Inpatient Condition: Fair Discharge Instructions Interventions: ED Discharge Assessment Last Done: 12/31/20 15:35
[2020-12-31 12:33] LABS: Basophils # (auto) 0.01 K/uL (0-0.2); Basophils % (auto) 0.1 %; Eosinophils # (auto) 0.08 K/uL (0-0.5); Hematocrit (blood only) 36.1 % (42-52); Hemoglobin 12.7 g/dL (14.0-18.0); Immature Granulocytes # (auto) 0.02 K/uL (0.00-0.02); Immature Granulocytes % (auto) 0.2 %; Lymphocytes # (auto) 1.31 K/uL (1.2-3.4); Lymphocytes % (auto) 16.2 %; Mean Corpuscular Hgb Conc 35.2 g/dL (32-36); Mean Corpuscular Volume 96.8 fL (80-100); Monocytes # (auto) 0.42 K/uL (0.11-0.59); Monocytes % (auto) 5.2 %; Neutrophils # (auto) 6.26 K/uL (1.4-6.5); Neutrophils % (auto) 77.3 %; Platelet Count 132 K/uL (130-400); RDW Standard Deviation 49.5 fL (36.4-46.3); Red Blood Count 3.73 M/uL (4.7-6.1)
[2020-12-31 12:37] LABS: Alanine Aminotransferase 30 U/L (12-78); Albumin Level 3.5 gm/dl (3.4-5.0); Aspartate Aminotransferase 28 U/L (15-37); BUN Creatinine Ratio 9.9 (10-20); Blood Urea Nitrogen 14 mg/dl (7-18); Calcium 9.4 mg/dl (8.5-10.1); Carbon Dioxide 25 mmol/L (21-32); Chloride 107 mmol/L (98-107); Creatinine Clr Calc Pharmacy 52.8 ml/min; Est GFR (African American) 56.2; Est GFR (Non-African American) 48.5; Glucose 151 mg/dl (70-99); Magnesium 1.5 mg/dl (1.8-2.4); Potassium 4.3 mmol/L (3.5-5.1); Sodium 137 mmol/L (136-145)
[2020-12-31 12:41] LABS: Albumin Globulin Ratio 0.9 (0.9-2); Alkaline Phosphatase 76 U/L (45-117); Bilirubin,Total 1.2 mg/dl (0.2-1); Globulin 3.8 gm/dl (2.5-4.0); Total Protein 7.3 gm/dl (6.4-8.2); Troponin I < 0.015 ng/ml (0-0.045)
[2020-12-31 12:42] LABS: INR 2.6 (0.9-1.1); Partial Thromboplastin Ratio 1.3; Partial Thromboplastin Time 33.6 Seconds (21.0-31.0); Prothrombin Time 24.4 Seconds (9.0-12.0)
--- NOTE | 2020-12-31 12:53 | CT Scan Report ---
CT ANGIOGRAM OF THE NECK CLINICAL HISTORY: Strokelike symptoms. Left upper extremity numbness. COMPARISON STUDY: No priors. TECHNIQUE: Following the IV administration of 120 of Optiray 320, CT angiogram of the neck was perfor med from the aortic arch to the skull base. Images are reviewed in the axial, sagittal, and coronal p lanes. 3-D MIPS images are created and assessed. IV contrast was administered without complication. A ll measurements were calculated based on NASCET criteria. A dose lowering technique was utilized adh ering to the principles of ALARA. CT DOSE: 1255.07 mGy.cm FINDINGS: Thoracic aorta: There is atherosclerotic calcification of the thoracic aorta. Visualized portions of the thoracic aorta are normal in caliber. The aortic arch demonstrates standard 3-vessel anatomy. Right carotid arterial system: The right common carotid artery is widely patent, as are the right int ernal and external carotid arteries. Calcified plaque is noted in the carotid bulb. Left carotid arterial system: The left common carotid artery is widely patent, as are the internal an d external carotid arteries. Calcified plaque is noted in the carotid bulb. Vertebral arteries: There is mild to moderate stenosis at the origin of the right vertebral artery. T he vertebral arteries are otherwise widely patent in the neck and codominant. Subclavian arteries: Widely patent bilaterally. Intracranial vasculature: The imaged intracranial vessels at the skull base are patent. Jugular veins: Widely patent bilaterally. Brain parenchyma: Left cerebellar encephalomalacia is consistent with a remote insult. Lung apices: Partially visualized upper lobe lung parenchyma appears clear. Soft tissues: The visualized pharyngeal soft tissues are normal in appearance noting angiographic pha se technique. The oropharyngeal airway appears widely patent. The salivary and thyroid glands are nor mal in appearance. No cervical lymphadenopathy is seen. Skeletal structures: The skeletal structures are osteopenic. The visualized calvarium at the skull ba se appears intact. The imaged cervical spine is maintained noting multilevel spondylosis. No lytic or blastic lesion is seen. IMPRESSION: 1. There is mild to moderate stenosis at the origin of the right vertebral artery. 2. Otherwise unremarkable CT angiogram of the neck. ACT 112: Negative or not required by law. Electronically signed by: Ruddy Coello M.D. 12/31/2020 12:51 PM
--- NOTE | 2020-12-31 12:54 | CT Scan Report ---
NONCONTRAST HEAD CT, HEAD CTA HISTORY: Left arm numbness. Stroke Like Symptoms TECHNIQUE: Multiaxial CT images of the head were performed both before and after the intravenous admi nistration of contrast to evaluate the major cerebral vessels. Maximum intensity projection images we re also obtained. A dose lowering technique was utilized adhering to the principles of ALARA. COMPARISON: None. FINDINGS: There is no mass, hematoma, midline shift, or acute infarct. Old infarct within the left ce rebellar hemisphere. There is also an old lacunar infarct within the right cerebellar hemisphere. Vis ualized intracranial internal carotid arteries, distal vertebral arteries, and basilar artery are wid laura patent. There is no significant stenosis, occlusion, or aneurysm seen within the bilateral ACAs, MCAs, or freight engineer. The major dural venous sinuses appear patent. Mild to moderate calcified plaque within the bilateral carotid siphons. IMPRESSION: 1. No acute intracranial abnormality. 2. Old cerebellar infarcts. 3. No significant stenosis, occlusion, or aneurysm within the [place]. ACT 112: Negative or not required by law. ACT 112: Negative or not required by law. Electronically signed by: Salas Gómez M.D. 12/31/2020 12:53 PM
--- NOTE | 2020-12-31 12:54 | CT Scan Report ---
NONCONTRAST HEAD CT, HEAD CTA HISTORY: Left arm numbness. Stroke Like Symptoms TECHNIQUE: Multiaxial CT images of the head were performed both before and after the intravenous admi nistration of contrast to evaluate the major cerebral vessels. Maximum intensity projection images we re also obtained. A dose lowering technique was utilized adhering to the principles of ALARA. COMPARISON: None. FINDINGS: There is no mass, hematoma, midline shift, or acute infarct. Old infarct within the left ce rebellar hemisphere. There is also an old lacunar infarct within the right cerebellar hemisphere. Vis ualized intracranial internal carotid arteries, distal vertebral arteries, and basilar artery are wid laura patent. There is no significant stenosis, occlusion, or aneurysm seen within the bilateral ACAs, MCAs, or pest control operator. The major dural venous sinuses appear patent. Mild to moderate calcified plaque within the bilateral carotid siphons. IMPRESSION: 1. No acute intracranial abnormality. 2. Old cerebellar infarcts. 3. No significant stenosis, occlusion, or aneurysm within the [place]. ACT 112: Negative or not required by law. ACT 112: Negative or not required by law. Electronically signed by: Salas Gómez M.D. 12/31/2020 12:53 PM
[2020-12-31] MEDS ORDERED: MAGNESIUM SULFATE / D5W 1 GM/100 ML BAG IV STA (12:57)
[2020-12-31] MEDS ORDERED: SODIUM CHLORIDE 0.9% 1000ML 500 ML IV ONE (12:57)
[2020-12-31] MEDS ORDERED: hydrALAZINE HCL 20 MG/ML VIAL IV ONE (13:41)
--- NOTE | 2020-12-31 13:55 | XRay Report ---
XR chest 1V portable HISTORY: Stroke Like Symptoms COMPARISON: Chest 10/05/2016. FINDINGS: No pneumothorax. No pleural effusions. The cardiac silhouette remains mildly enlarged. Ther e is mild diffuse interstitial thickening which is likely chronic. No new focal lung consolidations t o suggest pneumonia. No evidence for pulmonary edema. There are old, healed right-sided rib fractures . Stable punctate metallic density overlying the left lung apex. IMPRESSION: No significant change compared to the prior study. No acute process. ACT 112: Negative or not required by law. Electronically signed by: Salas Gómez M.D. 12/31/2020 1:53 PM
[2020-12-31 14:43] LABS: Appearance Urine Clear (Clear); Bacteria Urine Automated Negative (Negative); Bilirubin Urine Negative (Negative); Blood Urine Trace (Negative); Cast Urine Automated 0 /lpf (0-5); Color Urine Yellow; Glucose Urine UA Negative (Negative); Ketones Urine Negative (Negative); Leukocyte Esterase Urine Negative (Negative); Nitrite Urine Negative (Negative); Protein Urine Negative (Negative); RBC Urine Automated 0-4 /hpf (0-4); Specific Gravity Urine 1.031 (1.000-1.030); Urobilinogen Urine Negative (Negative); WBC Urine Automated 0 /hpf (0-5)
--- NOTE | 2020-12-31 15:43 | History & Physical Report ---
Date of Service December 31, 2020 Assessment & Plan (1) Stroke-like symptoms: (2) LOC (loss of consciousness): -admit to tele -patient presenting from home with reports of an episode of loss of consciousness (waking up on the floor in the middle of the night) and left hand and left foot numbness/tingling, mild difficulty with fine motor movement of left hand. Patient reports associated hypoglycemia throughout the night. -In the ED, head CT, head/neck CTA unremarkable -Stroke alert was called however patient was not felt to be a TPA candidate secondary to being anticoagulated on Coumadin and also being outside of the window -Differential diagnosis: Hypoglycemia, CVA, seizure, arrhythmia -Noted that patient is on Plavix and also anticoagulated on Coumadin with therapeutic INR -Monitor BSG's closely (glucose currently 151 on labs) -Monitor on telemetry for arrhythmias -Brain MRI, EEG, echo -Neurochecks -Permissive hypertension -Neurology consult, case discussed with Nataly Ro PA-C (3) PAF (paroxysmal atrial fibrillation): -Rate controlled on carvedilol, will continue -Anticoagulated on Coumadin, INR 2.6 (4) DM type 1 (diabetes mellitus, type 1): -Hgb A1c 6.2 07/2019, update Hgb A1c -? If hypoglycemia contributed to patient's symptoms overnight -Monitor glucoses closely -glycemic consult (5) Hypertension: -Hypertensive on arrival, improved after hydralazine 5 mg IV -Allowing for permissive hypertension in the setting of possible acute CVA -Continue home doses of carvedilol and isosorbide given underlying CAD, hold losartan and amlodipine for now to allow for permissive hypertension (6) Hypomagnesemia: -MG +1.5 -Replace, follow electrolytes (7) CAD (coronary artery disease): -Appears stable, no reports of chest pain -Continue Plavix, statin, beta-nba, nitrate (8) CKD (chronic kidney disease), stage III: -Baseline creatinine ~1.4 -Creatinine noted be 1.4 today -Monitor renal functions (9) DVT prophylaxis: -Anticoagulated on Coumadin, INR 2.6 History of Present Illness Chief Complaint: Strokelike symptoms Primary Care Provider: Bradley Manley MD 70-year-old male with PMH DM type I on insulin, CAD, remote history of CVA, CKD stage III, paroxysmal atrial fibrillation anticoagulated on Coumadin, HTN, and other problems listed below who presents to the ED for evaluation of strokelike symptoms. Patient reports that he woke up around 3 AM reporting that he was itchy all over. Patient reports that this is a sign his blood sugar is low. He did not take his blood sugar however did drink some orange juice and felt improved and went back to bed. Patient notes that while he was walking to get the orange juice, he felt very unsteady on his feet. Patient reports he woke up a few hours later and was on the floor. He does not remember getting up again or how he got to the floor. He was able to get up from the floor and went back to bed. He then woke up around 8 AM. Reports that he continued to feel unsteady on his feet and was bumping into things. He reports that his left hand felt numb and tingly. He also has neuropathy and reports increased numbness and tingling to his left foot. He reports checking his blood sugar at this time and it was 147. Patient then called EMS and presented to the ED for further evaluation. Patient reports he otherwise has been feeling well recently. Patient states that he did a lot of activity outside yesterday with removing snow. Patient denies chest pain or shortness of breath. No lightheadedness, dizziness, diaphoresis. Denies abdominal pain, nausea, vomiting, diarrhea. No other recent illnesses, fevers, chills. Denies urinary symptoms. In the ED, head CT and head and neck CTAs are unremarkable for acute findings. Stroke alert was called however patient was not felt to be a TPA candidate secondary to being anticoagulated on Coumadin and also being outside of the timeframe. Patient was also found to be hypertensive and received hydralazine 5 mg with improvement in BP. Labs are unremarkable/at patient's baseline. Patient was also given IVF. Allergies Allergy/AdvReac Type Severity Reaction Status Date / Time LEBRON Inhibitors Allergy Unknown COUGH Verified 12/31/20 14:02 Home Medications Medication Instructions Recorded Confirmed Type allopurinol 300 mg PO HS 12/31/20 12/31/20 History amlodipine 2.5 mg PO QAM 12/31/20 12/31/20 History atorvastatin 20 mg PO HS 12/31/20 12/31/20 History carvedilol 3.125 mg PO BID 12/31/20 12/31/20 History cholecalciferol (vitamin D3) 10 mcg PO DAILY 12/31/20 12/31/20 History clopidogrel 75 mg PO QAM 12/31/20 12/31/20 History cyanocobalamin (vitamin B-12) 1,000 mcg PO QAM 12/31/20 12/31/20 History [Vitamin B-12] ferrous sulfate 325 mg PO BID 12/31/20 12/31/20 History gabapentin 300 mg PO HS 12/31/20 12/31/20 History insulin NPH isoph U-100 human 60 unit SUBCUT DAILYBD 12/31/20 12/31/20 History [Novolin N NPH U-100 Insulin] insulin aspart U-100 [Novolog 10 sliding scale dose SUBCUT 12/31/20 12/31/20 History U-100 Insulin aspart] DAILYBD isosorbide mononitrate 60 mg PO QDL 12/31/20 12/31/20 History losartan 25 mg PO QAM 12/31/20 12/31/20 History metformin 500 mg PO QID 12/31/20 12/31/20 History nitroglycerin 0.4 mg SUBLINGUAL Q5M PRN 12/31/20 12/31/20 History pantoprazole 20 mg PO QDL 12/31/20 12/31/20 History warfarin See Rx Instructions .ROUTE .COMPLEX 12/31/20 12/31/20 History Past Med/Surg History Medical History LEBRON inhibitor intolerance "cough" CAD (coronary artery disease) Cerebrovascular disease, arteriosclerotic, post-stroke "cerebellar stroke 1993" Chronic anticoagulation CKD (chronic kidney disease), stage III DM type 1 (diabetes mellitus, type 1) Dyslipidemia GERD (gastroesophageal reflux disease) Gout Hypertension Obesity (BMI 30.0-34.9) PAF (paroxysmal atrial fibrillation) Surgical History H/O colonoscopy H/O esophagogastroduodenoscopy S/P angioplasty with stent per [facility] note: Non-ST segment elevation myocardial infarction in 1996 undergoing PTCA of the right coronary artery in February of 1997 followed by recurrent symptoms PTCA and stenting of the right coronary artery and mid left anterior descending in April 1997. Repeat coronary intervention 1999, PCI to the LCX OM. Unstable angina presentation in January 2015 s/p PCI of the mid LAD with a NORMAN. 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 Beliefs That Will Affect Care: None Current Living Situation: Alone Other Information That Helps Us Care for You: No Feels Safe at Home: Yes Safety Concerns: Feels Safe At This Time Assistive Devices: Denture - Upper, Denture - Lower and Glasses Review of Systems Review of Systems: ROS per HPI, all other systems reviewed and negative Physical Exam Constitutional: WD/WN, vitals as above Eyes: PERRL, conjunctivae normal, anicteric sclerae ENMT: external ear and nose normal, oropharynx normal Respiratory: normal respiratory effort, lungs clear to auscultation Cardiovascular: Rate/Rhythm: regular rate and regular rhythm Vessels: normal peripheral pulses Extremities: no edema Gastrointestinal (Abdomen): normal bowel sounds, soft, nontender, no hepatosplenomegaly Musculoskeletal: no cyanosis or clubbing, extremities motor strength 5/5 Skin: no rashes, warm and dry Neurologic: PERRL, EOMI, accommodation nl, no face palsy, no dysarthria moves all extremities and awake Motor/Sensory: + pronator drift (mild, LUE) Cranial Nerves: tongue midline and able to elevate shoulders bilaterally Coordination: + abnormal [id number] test (mild difficulty with left hand); normal [id number]-wt-[id number] test mild difficulty with fine motor movement of left hand Psychiatric: A+Ox3, euthymic affect Results & Data Results & Data ([facility]) Vital Signs (Past 12 Hours) Vital Signs Temp Pulse Resp BP Pulse Ox 12/31/20 14:01 59 L 20 173/61 H 95 12/31/20 13:00 58 L 21 203/77 H 99 12/31/20 12:49 60 17 197/73 H 100 12/31/20 12:35 69 20 206/75 H 100 12/31/20 12:03 58 L 16 176/74 H 98 12/31/20 11:27 36.6 C 64 16 213/83 H 97 Laboratory Results Short CBC 12/31/20 Range/Units 11:54 WBC 8.10 (4.8-10.8) K/uL Hgb 12.7 L (14.0-18.0) g/dL Hct 36.1 L (42-52) % Plt Count 132 (130-400) K/uL BMP 12/31/20 11:54 Sodium 137 Potassium 4.3 Chloride 107 Carbon Dioxide 25 BUN 14 Creatinine 1.44 H Glucose 151 H Calcium 9.4 Cardiac Enzymes 12/31/20 Range/Units 11:54 Troponin I < 0.015 (0-0.045) ng/ml Liver Function 12/31/20 Range/Units 11:54 Total Bilirubin 1.2 H (0.2-1) mg/dl AST 28 (15-37) U/L ALT 30 (12-78) U/L Alkaline Phosphatase 76 (45-117) U/L Albumin 3.5 (3.4-5.0) gm/dl Urine 12/31/20 Range/Units 13:55 Urine Color Yellow Urine Appearance Clear (Clear) Urine pH 7.0 (4.5-7.5) Ur Specific [place] 1.031 H (1.000-1.030) Urine Protein Negative (Negative) Urine Glucose (UA) Negative (Negative) Diagnostic Findings CXR IMPRESSION: No significant change compared to the prior study. No acute process. CT HEAD, CTA HEAD, CTA NECK IMPRESSION: 1. No acute intracranial abnormality. 2. Old cerebellar infarcts. 3. No significant stenosis, occlusion, or aneurysm within the [place]. Code Status & VTE Plan Code Status Patient is a full code as per my discussion with him. VTE Prophylaxis Plan VTE Prophylaxis will be ordered: No Supervising Physician Co-Signing Physician Notes The patient is 70-year-old man presenting with concerns of left arm numbness and bilateral foot numbness/tingling after a difficult night of repeated episodes of hypoglycemia which involved waking up on the floor at one point, uncertain of how he got there. The patient reports taking his insulin sporadically in the morning based on how much food he eats, and what activities he has plan for that day. Is unclear if he had his insulin or his Metformin yesterday morning, and he thinks he had a light breakfast. He reports a heavy day of snow-blowing on his driveway and had to stop a couple of times to drink juice because he got itchy, which is his hallmark sign his blood sugar is less than 70. He reports falling asleep at midnight and having nightmares feeling he was out of control of his body and reporting he felt like he was going to . At one point he got up and got something from the kitchen and remembers going back into the bed to sleep. This was around 0 200. The next thing he remembers was waking up on the floor face down on the other side of the room. He reports being clear when he woke up he was not confused, but he did not remember how he got there. He remembered feeling cold. He did not have any pain, bladder incontinence or any headache or any issues getting up off the floor. He went into the bed and felt fatigued. He cannot remember if he felt numb or experienced any other stroke symptoms at this time. He later woke up and had breakfast this morning including to toast and a coffee. He then reports checking his blood sugar which first read 147 then thirty minutes later read 47. He reported feeling his hands and feet were numb and he felt wobbly and off balance. He said he fell into the medicine cabinet in his bathroom, and at this point he was concerned he was having a stroke. Diagnostic studies in the ER including CT angiogram of the head and neck were negative for acute stroke but did show old cerebellar infarcts. He reports residual disequilibrium from prior strokes in the past but is currently ambulating independently without any issues. No acute intracranial abnormalities were seen. Chest x-ray was negative. EKG revealed sinus rhythm with a rate of 61 despite the patient having paroxysmal atrial fibrillation. INR was therapeutic at 2.6. Blood pressure was elevated 203/77 but the patient was also very anxious-appearing in the ER, and was tearful when reviewing his story with me. He appeared shaken. He is already taking warfarin and Plavix. Later an MRI was also negative for acute intracranial abnormality. His symptoms seem to have improved as he was able to demonstrate 5 out of 5 hand strength and strength in his left upper and lower extremities. He did report residual numbness especially in his left upper extremity, however, this left arm gives him issues frequently more so than the right because of previous shoulder dislocations and shoulder surgeries evidenced by a large scar in the anterior shoulder area. He also reports chronic peripheral neuropathy in both of his feet and current bilateral numbness in his feet consistent with that peripheral neuropathy. His cranial nerves were intact and fundoscopic exam was normal bilaterally. His speech and mentation was normal. Patellar reflexes could not be elicited as patient was tensing his legs. His blood sugar in the ER was 41 and he was given juice and some food with this rising to more appropriate levels. This clinical picture is not consistent with acute stroke, however, will defer that to neurology who is consulted. It is uncertain what caused his episode last night, however with multiple episodes of hypoglycemia, this is the most likely etiology. THE PATIENT APPEARS TO BE A TYPE II DIABETIC and there is discordant information in the records. Would be very cautious with any insulin administration until he demonstrates the need for this (hold carb coverage with meals and glargine for now). Will repeat hemoglobin A1c. Agree with echo in the setting of possible syncope. Continue work-up as above. Reassess insulin regimen needs at discharge. DO S[facility]
--- NOTE | 2020-12-31 16:53 | Electrocardiogram Report ---
Test Reason : Blood Pressure : / mmHG Vent. Rate : 061 BPM Atrial Rate : 061 BPM P-R Int : 148 ms QRS Dur : 082 ms QT Int : 434 ms P-R-T Axes : 017 007 015 degrees QTc Int : 436 ms Normal sinus rhythm Minimal voltage criteria for LVH, may be normal variant Nonspecific T wave abnormality Abnormal ECG When compared with ECG of 07-OCT-2016 06:26, ST no longer elevated in Inferior leads ST no longer elevated in Lateral leads Confirmed by Tiago Domínguez ([id number]) on 12/31/2020 4:53:34 PM Referred By: ED Confirmed By:Clark Domínguez
[2020-12-31] MEDS ORDERED: GADOBUTROL 65ML VIAL IV ONE (17:01)
--- NOTE | 2020-12-31 17:13 | Magnetic Resonance Report ---
MRI OF THE BRAIN WITHOUT AND WITH IV CONTRAST CLINICAL HISTORY: Strokelike symptoms. Left arm numbness. COMPARISON STUDY: Noncontrast CT scan dated 12/31/2020, MRI the brain dated 11/16/2010 TECHNIQUE: MRI of the brain was performed from the vertex to the skull base utilizing various T1 and T2 weighted sequences. Following the IV administration of 10 mL of Gadavist contrast, additional enha nced images were obtained. FINDINGS: Sagittal T1, axial diffusion, proton density and T2 weighted axial, coronal FLAIR, and pre and post a xial T1-weighted images were acquired. These were supplemented with post gadolinium coronal T1 weight ed images. No intra or extra-axial mass lesions are visualized. Axial diffusion-weighted images reveal no evidence of acute or subacute infarction. There is no evidence of ventricular dilatation. Proton density T2-weighted and FLAIR images reveal scattered foci of increased T2 signal within the w danielle matter, likely on a small vessel basis. There are no abnormal there is an old left PICA distribution cerebellar infarct. There are old right cerebellar lacunar infarcts. Flow voids. There is no evidence of pathologic enhancement. IMPRESSION: 1. No acute intracranial findings 2. No evidence of acute or subacute infarction 3. No evidence of intracranial mass 4. Old cerebellar infarcts ACT 112: Negative or not required by law. Electronically signed by: Emiliano Martin M.D. 12/31/2020 5:12 PM
[2020-12-31] MEDS ORDERED: ACETAMINOPHEN 325 MG TAB PO PRN (17:35)
[2020-12-31] MEDS ORDERED: PHARMACIST DISCHARGE MED REC CONSULT PRN (17:35)
[2020-12-31] MEDS ORDERED: PHARMACY GLYCEMIC MGMT CONSULT PRN (18:07)
[2020-12-31] MEDS ORDERED: LOSARTAN POTASSIUM 25 MG TAB PO ONE (18:30)
[2020-12-31] MEDS ORDERED: CARBOHYDRATES FOR HYPOGLYCEMIA PO PRN (18:30)
[2020-12-31] MEDS ORDERED: MAGNESIUM SULFATE / D5W 1 GM/100 ML BAG IV ONE (18:30)
[2020-12-31] MEDS ORDERED: GLUCAGON FOR INJ 1 MG VIAL IM PRN (18:30)
[2020-12-31] MEDS ORDERED: ISOSORBIDE MONO EXTENDED REL 60 MG TABCR PO ONE (18:30)
[2020-12-31] MEDS ORDERED: amLODIPine BESYLATE 5 MG TAB PO ONE (18:30)
[2020-12-31] MEDS ORDERED: GLUCOSE 10 TABS/TUBE PO PRN (18:30)
[2020-12-31] MEDS ORDERED: DEXTROSE 50% 50 ML SYRINGE IV PRN (18:30)
[2020-12-31] MEDS ORDERED: GLUCOSE 40% GEL 15 GM TUBE PO PRN (18:30)
[2020-12-31] MEDS ORDERED: WARFARIN SOD 4 MG TAB PO SCH (19:00)
[2020-12-31] MEDS: INSULIN ASPART 100 UNITS/ML 3 ML PEN SC SCH (21:05)
[2020-12-31] MEDS: ATORVASTATIN 20 MG TAB PO SCH (21:05)
[2020-12-31] MEDS: carvediloL 3.125 MG TAB PO SCH (21:05)
[2020-12-31] MEDS: allopurinoL 300 MG TAB PO SCH (21:05)
[2020-12-31] MEDS: GABAPENTIN 300 MG CAP PO SCH (21:06)
[2020-12-31] MEDS: FERROUS SULFATE 325 MG TAB PO SCH (21:06)
--- NOTE | 2020-12-31 21:28 | Pharmacy Report ---
Pharmacy Glycemic Short Note 2 - Date of Service December 31, 2020 - Glycemic Short BSG Results (Last 24 hours): 12/31/20 12/31/20 12/31/20 11:54 15:43 16:13 Glucose 151 H POC Glucose 41 L* 65 L* 12/31/20 12/31/20 12/31/20 16:15 17:21 19:03 Glucose POC Glucose 70 102 H 126 H 12/31/20 12/31/20 20:01 21:04 Glucose POC Glucose 147 H 131 H OUTPATIENT ANTIDIABETIC REGIMEN: * NPH unknown amount in AM + 60 units before dinner * Novolog unknown amount in AM + 10 units with dinner * Metformin 500 mg PO QID * HbA1c pending ASSESSMENT: * 70 yo M admitted secondary to stroke-like symptoms. Pharmacy is consulted for inpatient glycemic management. Spoke with both attending and NABIL, believe patient was hypoglycemic prior to admission. * Per H&P: patient was itchy overnight and this is a sign of low blood sugar to him. He drank some orange juice and felt better so went back to sleep. Then states he woke up a few hours later on the floor without any recollection of these events. * Random BSG was 151 mg/dL upon admission. No insulin was received and his BSG dropped to 41 mg/dL. It improved with orange juice up to 102 mg/dL. * Per physician, patient will have more frequent BSG checks starting at every 1 hour and then spacing out throughout the night. Patient is not to receive any basal insulin or a carbohydrate ratio for the time being. * Most recent BSG was 131 mg/dL. * Will utilize a less stringent goal range of 120 - 160 mg/dL to prevent any further hypoglycemia. Starting patient on Novolog only with a correction factor based on weight/stress of one. PLAN FOR INPATIENT GLYCEMIC CONTROL: * Hold outpatient oral diabetes medications * Basal insulin * None * Bolus insulin * NovoLog per scale ACHS or Q6hrs while NPO * Goal Range: Low 120 mg/dL - High 160 mg/dL * Correction Factor: 40 mg/dL/unit * No carb ratio PLAN FOR DISCHARGE: * To be determined
[2021-01-01 05:58] LABS: Basophils # (auto) 0.02 K/uL (0-0.2); Basophils % (auto) 0.3 %; Eosinophils # (auto) 0.32 K/uL (0-0.5); Eosinophils % (auto) 4.2 %; Hematocrit (blood only) 32.8 % (42-52); Hemoglobin 11.1 g/dL (14.0-18.0); Immature Granulocytes # (auto) 0.02 K/uL (0.00-0.02); Immature Granulocytes % (auto) 0.3 %; Lymphocytes # (auto) 1.84 K/uL (1.2-3.4); Lymphocytes % (auto) 24.1 %; Mean Corpuscular Hemoglobin 33.4 pg (25-34); Mean Corpuscular Hgb Conc 33.8 g/dL (32-36); Mean Corpuscular Volume 98.8 fL (80-100); Mean Platelet Volume 10.4 fL (7.4-10.4); Monocytes # (auto) 0.67 K/uL (0.11-0.59); Monocytes % (auto) 8.8 %; Neutrophils # (auto) 4.75 K/uL (1.4-6.5); Neutrophils % (auto) 62.3 %; Platelet Count 120 K/uL (130-400); RDW Coefficient of Variation 14.1 % (11.5-14.5); RDW Standard Deviation 50.4 fL (36.4-46.3); Red Blood Count 3.32 M/uL (4.7-6.1); White Blood Count 7.62 K/uL (4.8-10.8)
[2021-01-01 06:07] LABS: INR 2.1 (0.9-1.1); Prothrombin Time 19.8 Seconds (9.0-12.0)
[2021-01-01 06:21] LABS: Estimated Average Glucose 137 mg/dl; Hemoglobin A1C 6.4 % (4.5-5.6)
[2021-01-01 06:32] LABS: BUN Creatinine Ratio 10.8 (10-20); Calcium 8.5 mg/dl (8.5-10.1); Creatinine Clr Calc Pharmacy 51.1 ml/min; Est GFR (African American) 53.1; Est GFR (Non-African American) 45.8; Magnesium 1.9 mg/dl (1.8-2.4); Potassium 4.3 mmol/L (3.5-5.1)
[2021-01-01] MEDS: CHOLECALCIFEROL 400 UNITS 10 MCG TAB PO SCH (08:24)
[2021-01-01] MEDS: CLOPIDOGREL BISULFATE 75 MG TAB PO SCH (08:24)
[2021-01-01] MEDS: CYANOCOBALAMIN 500 MCG TABLET (VITAMIN B-12) PO SCH (08:24)
[2021-01-01] MEDS: LOSARTAN POTASSIUM 25 MG TAB PO SCH (08:25)
[2021-01-01] MEDS: FERROUS SULFATE 325 MG TAB PO SCH ×2 (08:25→21:35)
[2021-01-01] MEDS: carvediloL 3.125 MG TAB PO SCH ×2 (08:26→21:35)
[2021-01-01] MEDS: INSULIN ASPART 100 UNITS/ML 3 ML PEN SC SCH ×4 (08:30→21:42)
[2021-01-01] MEDS ORDERED: amLODIPine BESYLATE 5 MG TAB PO SCH (09:00)
[2021-01-01] MEDS: INSULIN GLARGINE SOLOSTAR 100 UNITS/ML 3 ML PEN SC SCH (09:34)
--- NOTE | 2021-01-01 11:15 | Pharmacy Report ---
Pharmacy Glycemic Short Note 2 - Date of Service January 01, 2021 - Glycemic Short BSG Results (Last 24 hours): 12/31/20 12/31/20 12/31/20 11:54 15:43 16:13 Glucose 151 H POC Glucose 41 L* 65 L* 12/31/20 12/31/20 12/31/20 16:15 17:21 19:03 Glucose POC Glucose 70 102 H 126 H 12/31/20 12/31/20 12/31/20 20:01 21:04 22:15 Glucose POC Glucose 147 H 131 H 127 H 01/01/21 01/01/21 05:26 07:14 Glucose 142 H POC Glucose 154 H OUTPATIENT ANTIDIABETIC REGIMEN: * NPH unknown amount in AM + 60 units before dinner * Novolog unknown amount in AM + 10 units with dinner * Metformin 500 mg PO QID * HbA1c pending ASSESSMENT: 01/01: * BSGs appeared to stabilize last evening and continue this morning was a fasting BSG of 142. I discussed with provider and it was decided to proceed with adding basal insulin as well as covering carbs. I will be somewhat conservative in dosing given the hypoglycemic events yesterday. * Patient is tolerating a diet. Lunch BSG elevated at 233 mg/dL, will tighten NovoLog scale. 12/31 * 70 yo M admitted secondary to stroke-like symptoms. Pharmacy is consulted for inpatient glycemic management. Spoke with both attending and NABIL, believe patient was hypoglycemic prior to admission. * Per H&P: patient was itchy overnight and this is a sign of low blood sugar to him. He drank some orange juice and felt better so went back to sleep. Then states he woke up a few hours later on the floor without any recollection of these events. * Random BSG was 151 mg/dL upon admission. No insulin was received and his BSG dropped to 41 mg/dL. It improved with orange juice up to 102 mg/dL. * Per physician, patient will have more frequent BSG checks starting at every 1 hour and then spacing out throughout the night. Patient is not to receive any basal insulin or a carbohydrate ratio for the time being. * Most recent BSG was 131 mg/dL. * Will utilize a less stringent goal range of 120 - 160 mg/dL to prevent any further hypoglycemia. Starting patient on Novolog only with a correction factor based on weight/stress of one. PLAN FOR INPATIENT GLYCEMIC CONTROL: * Hold outpatient oral diabetes medications * Basal insulin * Lantus 30 units qam * Lantus scale this evening 0,5,10 units based on BSG-See MAR for details * Bolus insulin * NovoLog per scale ACHS or Q6hrs while NPO * Goal Range: Low 120 mg/dL - High 160 mg/dL * Correction Factor: 25 mg/dL/unit (40 at breakfast) * Prandial Insulin: Per carb ratio of 1 unit per 8 grams CHO consumed (10 with breakfast) * Please note that the plan above was derived based on current level of insulin resistance and hospital stress. These recommendations are appropriate for inpatient admission only. Plan of care upon discharge will need to be reassessed to avoid potential outpatient hypo/hyperglycemia. PLAN FOR DISCHARGE: * To be determined
[2021-01-01] MEDS: ISOSORBIDE MONO EXTENDED REL 60 MG TABCR PO SCH (11:51)
[2021-01-01] MEDS: PANTOprazole 40 MG TAB PO SCH (11:51)
--- NOTE | 2021-01-01 12:22 | Electrocardiogram Report ---
Test Reason : Blood Pressure : / mmHG Vent. Rate : 058 BPM Atrial Rate : 058 BPM P-R Int : 160 ms QRS Dur : 086 ms QT Int : 410 ms P-R-T Axes : 066 072 075 degrees QTc Int : 402 ms Sinus bradycardia Nonspecific T wave abnormality Abnormal ECG When compared with ECG of 31-DEC-2020 11:46, Questionable change in QRS axis Confirmed by Tiago Domínguez ([id number]) on 01/01/2021 12:22:18 PM Referred By: REFERRED SELF Confirmed By:Clark Domínguez
--- NOTE | 2021-01-01 12:55 | Electroencephalogram ---
EEG Procedure Note Date of Service January 01, 2021 Start / End Times Start Time: 0 730 End Time: 0 755 Referring Physician Markus kemp MD History Syncope versus seizure Home Medication List Medication Instructions Recorded Confirmed Type allopurinol 300 mg PO HS 12/31/20 12/31/20 History amlodipine 2.5 mg PO QAM 12/31/20 12/31/20 History atorvastatin 20 mg PO HS 12/31/20 12/31/20 History carvedilol 3.125 mg PO BID 12/31/20 12/31/20 History cholecalciferol (vitamin D3) 10 mcg PO DAILY 12/31/20 12/31/20 History clopidogrel 75 mg PO QAM 12/31/20 12/31/20 History cyanocobalamin (vitamin B-12) 1,000 mcg PO QAM 12/31/20 12/31/20 History [Vitamin B-12] ferrous sulfate 325 mg PO BID 12/31/20 12/31/20 History gabapentin 300 mg PO HS 12/31/20 12/31/20 History insulin NPH isoph U-100 human 60 unit SUBCUT DAILYBD 12/31/20 12/31/20 History [Novolin N NPH U-100 Insulin] insulin aspart U-100 [Novolog 10 sliding scale dose SUBCUT 12/31/20 12/31/20 History U-100 Insulin aspart] DAILYBD isosorbide mononitrate 60 mg PO QDL 12/31/20 12/31/20 History losartan 25 mg PO QAM 12/31/20 12/31/20 History metformin 500 mg PO QID 12/31/20 12/31/20 History nitroglycerin 0.4 mg SUBLINGUAL Q5M PRN 12/31/20 12/31/20 History pantoprazole 20 mg PO QDL 12/31/20 12/31/20 History warfarin See Rx Instructions .ROUTE .COMPLEX 12/31/20 12/31/20 History Inpatient Medication List Allopurinol (Allopurinol 300 Mg Tab) 300 mg PO HS [facility]AC Stop: 01/30/21 20:59 Last Admin: 12/31/20 21:05 Dose: 300 mg Documented by: [id number] Amlodipine Besylate (Amlodipine Besylate 5 Mg Tab) 2.5 mg PO QAM [facility] Stop: 01/31/21 08:59 Last Admin: 01/01/21 08:24 Dose: 2.5 mg Documented by: [id number] Atorvastatin Calcium (Atorvastatin 20 Mg Tab) 20 mg PO [facility] Stop: 01/30/21 20:59 Last Admin: 12/31/20 21:05 Dose: 20 mg Documented by: [id number] Carvedilol (Carvedilol 3.125 Mg Tab) 3.125 mg PO BID [facility] Stop: 01/30/21 20:59 Last Admin: 01/01/21 08:26 Dose: 3.125 mg Documented by: [id number] Admin: 12/31/20 21:05 Dose: 3.125 mg Documented by: [id number] Clopidogrel Bisulfate ([facility]opidogrel Bisulfate 75 Mg Tab) [facility] [place]: 01/31/21 08:59 Last Admin: 01/01/21 08:24 Dose: 75 mg Documented by: [id number] Cyanocobalamin (Cyanocobalamin 500 Mcg Tablet (Vitamin B-12)) 1,000 mcg PO [facility] Stop: 01/31/21 08:59 Last Admin: 01/01/21 08:24 Dose: 1,000 mcg Documented by: [id number] Ferrous Sulfate (Ferrous Sulfate 325 Mg Tab) 325 mg PO BID [facility] Stop: 01/30/21 20:59 Last Admin: 01/01/21 08:25 Dose: 325 mg Documented by: [id number] Admin: 12/31/20 21:06 Dose: 325 mg Documented by: [id number] Gabapentin (Gabapentin 300 Mg Cap) 300 mg PO [facility] Stop: 01/30/21 20:59 Last Admin: 12/31/20 21:06 Dose: 300 mg Documented by: [id number] Insulin Aspart (Insulin Aspart 100 Units/Ml 3 Ml Pen) 0 units [facility] Stop: 01/30/21 20:59 Last Admin: 01/01/21 11:50 Dose: 10 units Documented by: [id number] Cosigned by: [id number] Admin: 01/01/21 08:30 Dose: 5 units Documented by: [id number] Cosigned by: [id number] Admin: 12/31/20 21:05 Dose: Not Given Documented by: [id number] Insulin Glargine (Insulin Glargine Solostar 100 Units/Ml 3 Ml Pen) 30 units SC QAM [facility] Stop: 01/31/21 08:59 Last Admin: 01/01/21 09:34 Dose: 30 units Documented by: [id number] Cosigned by: [id number] Isosorbide Mononitrate (Isosorbide [place] Extended Rel 60 Mg Tabcr) 60 mg PO QDL [facility] Stop: 01/31/21 11:29 Last Admin: 01/01/21 11:51 Dose: 60 mg Documented by: [id number] Losartan Potassium (Losartan Potassium 25 Mg Tab) 25 mg PO QAM [facility] Stop: 01/31/21 08:59 Last Admin: 01/01/21 08:25 Dose: 25 mg Documented by: [id number] Pantoprazole Sodium (Pantoprazole 40 Mg Tab) 40 mg PO QDL [facility]; Protocol Stop: 01/31/21 11:29 Last Admin: 01/01/21 11:51 Dose: 40 mg Documented by: [id number] Vitamin D (Cholecalciferol 400 Units 10 Mcg Tab) 400 units PO DAILY [facility] Stop: 01/31/21 08:59 Last Admin: 01/01/21 08:24 Dose: 400 units Documented by: [id number] Warfarin Sodium (Warfarin Sod 4 Mg Tab) 4 mg PO Q2D@1600 [facility] Stop: 01/30/21 18:59 Last Admin: 12/31/20 19:08 Dose: 4 mg Documented by: [id number] Discontinued Medications Amlodipine Besylate (Amlodipine Besylate 5 Mg Tab) 2.5 mg PO NOW ONE Stop: 12/31/20 18:31 Last Admin: 12/31/20 19:08 Dose: 2.5 mg Documented by: [id number] Gadobutrol (Gadobutrol 65ml Vial) 10 ml IV ONCE ONE Stop: 12/31/20 17:02 Last Admin: 12/31/20 17:01 Dose: 10 ml Documented by: [id number] Hydralazine HCl (Hydralazine Hcl 20 Mg/Ml Vial) 5 mg IV NOW ONE Stop: 12/31/20 13:42 Last Admin: 12/31/20 14:17 Dose: 5 mg Documented by: [id number] Magnesium Sulfate/Dextrose (Magnesium Sulfate / D5w) 1 gm in 100 mls @ 100 mls/hr IV NOW STA Stop: 12/31/20 13:56 Last Infusion: 12/31/20 14:17 Dose: 0 mls/hr Documented by: [id number] Admin: 12/31/20 13:06 Dose: 100 mls/hr Documented by: [id number] Sodium Chloride (Nss 1000ml) 500 mls @ 999 mls/hr IV .Q31M ONE Stop: 12/31/20 13:27 Last Infusion: 12/31/20 14:18 Dose: 0 mls/hr Documented by: [id number] Admin: 12/31/20 13:06 Dose: 999 mls/hr Documented by: [id number] Magnesium Sulfate/Dextrose (Magnesium Sulfate / D5w) 1 gm in 100 mls @ 50 mls/hr IV ONE ONE Stop: 12/31/20 20:29 Last Infusion: 12/31/20 20:37 Dose: 0 mls/hr Documented by: [id number] Admin: 12/31/20 18:23 Dose: 50 mls/hr Documented by: [id number] Ioversol (Optiray 320 125ml) 120 ml IV ONCE ONE Stop: 12/31/20 12:26 Last Admin: 12/31/20 12:25 Dose: 120 ml Documented by: [id number] Isosorbide Mononitrate (Isosorbide [place] Extended Rel 60 Mg Tabcr) 60 mg PO ONE ONE Stop: 12/31/20 18:31 Last Admin: 12/31/20 19:09 Dose: 60 mg Documented by: [id number] Losartan Potassium (Losartan Potassium 25 Mg Tab) 25 mg PO ONE ONE Stop: 12/31/20 18:31 Last Admin: 12/31/20 19:09 Dose: 25 mg Documented by: [id number] Description This is a 21 electrode EEG with a single channel dedicated to limited EKG. The electrodes were placed in accordance with the International 10-20 system This EEG performed as a bedside tracing is of excellent technical quality with few or no muscle movement artifacts. Photic stimulation was performed. Drowsiness light sleep not recorded. Video analysis patient movement behavior was obtained. Under the conditions there is evidence for normal-appearing background rhythm in the alpha range of up to 10 Hz maximum frequency and 20 V maximal amplitude. This is maximum posterior head regions and bilateral symmetrical. Polymorphic mid frequency modest voltage theta activity seen centrally and symmetrically. Beta activity seen bifrontally. Stimulation provokes modest driving response There is no evidence for potentially epileptogenic activity Interpretation This is a normal EEG during wakefulness Clinical Correlation This EEG is normal revealing no evidence for a focal generalized encephalopathy no evidence for potentially epileptogenic activity Vicente Beauchamp MD
[2021-01-01] MEDS ORDERED: amLODIPine BESYLATE 5 MG TAB PO ONE (13:30)
--- NOTE | 2021-01-01 14:03 | Hospitalist Progress Note ---
Date of Service January 01, 2021 Assessment & Plan (1) Stroke-like symptoms: (2) LOC (loss of consciousness): Present on admission after found on the floor in the middle of the night and stroke like symptoms Possible related to hypoglycemia, but need to r/o seizure and acute CVA Glucose [address]/CTA head showed no acute intracranial abnormality. 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 MRI of head showed no acute intracranial findings. No evidence of acute or subacute infarction ECHO showed Echo showed the end atrial septum is intact with no evidence for atrial septal defect, no entered atrial shunt with Ejection fraction 60 to 65% EEG showed no evidence for a focal generalized encephalopathy no evidence for potentially epileptogenic activity No focal neuro deficit on exam Neuro on board - Pending Continue home dose plavix and coumadin Clinically stable (3) Diabetes type 2, controlled: Hypoglycemia Most recent Hba1c 6.4 Glucose 41 on admission Pharmacy on board for glycemic management Continue monitor BS (4) PAF (paroxysmal atrial fibrillation): Rate controlled on carvedilol Anticoagulated on Coumadin with INR 2.1 (5) Hypertension: BP elevated possible related to hospital setting Pt is very anxious to go home Continue home doses of carvedilol and isosorbide, Losartan and amlodipine Amlodipine increased to 5 mg, but pt said that he was on 5 mg before that was decreased to half by cardiology due to hypotension Continue monitor BP (6) Hypomagnesemia: MG +1.5 on admission Mg 1.9 today stable (7) CAD (coronary artery disease): Asymptomatic Continue Plavix, statin, beta-nba, nitrate (8) CKD (chronic kidney disease), stage III: Baseline creatinine ~1.4 Creatinine noted be 1.5 today Monitor renal functions (9) DVT prophylaxis: Anticoagulated on Coumadin, INR 2.1 Disposition Possible discharge tomorrow Admission and Anticipated Discharge Date Admission Date: December 31, 2020 Subjective Pt was seen an examined for follow up stroke like symptoms and low BS Sitting at the edge of the bed with no acute distress Pt said that he feels fine He said that he walked around with therapist with no distress He said that his back to his baseline and was thinking to go home today Denies any chest pain, palpitation, dizziness and SOB Review of Systems Review of Systems: All systems reviewed & are unremarkable except as noted in Subjective Physical Exam Physical Exam: General- No acute distress Head- atraumatic Eyes- PERRL, EOMI, ENT- oropharynx clear Neck- supple, no JVD Lungs- clear to auscultation Heart- regular rhythm; no murmur Abdomen- normal bowel sounds, soft, nontender Extremities- no calf tenderness Neuro- alert, oriented x 3; PERRL, EOMI; no facial palsy; no dysarthria Skin- warm & dry Results & Data Results & Data ([facility]) Vital Signs (Past 12 Hours) Vital Signs Temp Pulse Pulse Resp BP Pulse Ox 01/01/21 11:18 36.6 C 54 L 18 170/75 H 97 01/01/21 08:00 59 L 01/01/21 07:55 36.9 C 58 L 19 153/69 H 97 01/01/21 07:09 36.4 C L 77 19 115/68 95 01/01/21 04:53 36.6 C 59 L 18 130/55 L 95
--- NOTE | 2021-01-01 15:29 | Neurology Consultation ---
Date of Consultation January 01, 2021 Assessment & Plan (1) Syncope and collapse: 1. MRI brain- no acute findings 2. CTA head/neck- no severe stenosis or occlusion 3. EEG- no seizure focus 4. PT/OT for discharge needed 5. no neurology follow up needed after discharge, will be available for questions as needed Present on Admission?: Yes (2) History of CVA (cerebrovascular accident): 1. old infarct but no new findings Present on Admission?: Yes (3) PAF (paroxysmal atrial fibrillation): 1. continue coumadin to therapeutic INR- within range on admission 2. continue plavix 75 mg for stroke prevention 3. optimize HTN HLD DM LDL <70 - consider patients age Present on Admission?: Yes Supervising Physician Co-Signing Physician Notes I have seen and discussed above patient with Dr Vicente Beauchamp, neurology I have interviewed and examined this man in conjunction with Nataly Ro PA-C and have reviewed his history and discussed his case with Dr. Hayden. I also read an EEG on him today which was normal. Upon review of the history I suspect this was a protracted hypoglycemic event occurring nocturnally after taking his insulin and after a night of pretty vigorous physical activity involving snowblowing and characterized by recurrent episodes of pruritus and lightheadedness which are apparently typical of his hypoglycemic events and responded initially to some orange juice but then did n ot and culminated in what sounds like a syncopal episode with collapse and confusion. Upon arrival here his glucose levels were in the 40s and I suspect they were probably lower during the evening hours Currently with exception of evidence for neuropathy his exam is essentially normal His MRI scan shows no evidence for an acute stroke and EEG shows no evidence for potentially epileptic genic activity. CT angiography studies have shown no clear significant extracranial or intracranial vascular disease and is echocardiographic examination shows no evidence for potential cardiogenic emboli Overall then the history suggests hypoglycemia and the lack of any alternative diagnosis and the persistence of marginal hypoglycemia here requiring reduced Lantus doses in my opinion further confirms that I do not think this was a seizure as stroke a TIA and neurology frankly does not need to see him in follow-up We can sign off the case. His diabetes is being managed by the pharmacy and Dr. Gutiérrez I think some insulin dosage adjustments are going to be required along with follow-up with his primary care physician Vicente Beauchamp MD History of Present Illness Reason for Consultation: stroke like symptoms Requesting Physician: Roberta Hayden MD Attending Physician: Roberta Hayden MD History of Present Illness Brii is a 70 year old male with PMH DM I on insulin, CAD, remote history of CVA, CKD stage III, pAF anticoagulated on Coumadin, HTN. He presented to [facility] ED for evaluation of strokelike symptoms. He woke up around 3 AM and was itchy all over. This is a sign his blood sugar is low. He did not take his blood sugar however did drink some orange juice and felt improved and went back to bed. He was walking to get the orange juice, he felt very unsteady on his feet. He woke up a few hours later and was on the floor. He does not remember getting up again or how he got to the floor. He was able to get up from the floor and went back to bed. He then woke up around 8 AM. He continued to feel unsteady on his feet and was bumping into things. His left hand felt numb and tingly. He has neuropathy and reports increased numbness and tingling to his left foot. He called EMS and presented to the ED for further evaluation. He did a lot of activity outside yesterday with removing snow. He was also hypertensive and received hydralazine 5 mg with improvement in BP. Currently the pharmacy is still working on keeping is glucose reading in a higher range to avoid hypoglycemia and has cut his Lantus in half. Otherwise he is feeling back to baseline. denies CP, SOB, abdominal pain, N, V. +cuts and scraps from the fall. Allergies Allergy/AdvReac Type Severity Reaction Status Date / Time LEBRON Inhibitors Allergy Unknown COUGH Verified 12/31/20 14:02 Home Medications Medication Instructions Recorded Confirmed Type allopurinol 300 mg PO HS 12/31/20 12/31/20 History amlodipine 2.5 mg PO QAM 12/31/20 12/31/20 History atorvastatin 20 mg PO HS 12/31/20 12/31/20 History carvedilol 3.125 mg PO BID 12/31/20 12/31/20 History cholecalciferol (vitamin D3) 10 mcg PO DAILY 12/31/20 12/31/20 History clopidogrel 75 mg PO QAM 12/31/20 12/31/20 History cyanocobalamin (vitamin B-12) 1,000 mcg PO QAM 12/31/20 12/31/20 History [Vitamin B-12] ferrous sulfate 325 mg PO BID 12/31/20 12/31/20 History gabapentin 300 mg PO HS 12/31/20 12/31/20 History insulin NPH isoph U-100 human 60 unit SUBCUT DAILYBD 12/31/20 12/31/20 History [Novolin N NPH U-100 Insulin] insulin aspart U-100 [Novolog 10 sliding scale dose SUBCUT 12/31/20 12/31/20 History U-100 Insulin aspart] DAILYBD isosorbide mononitrate 60 mg PO QDL 12/31/20 12/31/20 History losartan 25 mg PO QAM 12/31/20 12/31/20 History metformin 500 mg PO QID 12/31/20 12/31/20 History nitroglycerin 0.4 mg SUBLINGUAL Q5M PRN 12/31/20 12/31/20 History pantoprazole 20 mg PO QDL 12/31/20 12/31/20 History warfarin See Rx Instructions .ROUTE .COMPLEX 12/31/20 12/31/20 History Patient History Medical History LEBRON inhibitor intolerance "cough" CAD (coronary artery disease) Cerebrovascular disease, arteriosclerotic, post-stroke "cerebellar stroke 1993" Chronic anticoagulation CKD (chronic kidney disease), stage III DM type 1 (diabetes mellitus, type 1) Dyslipidemia GERD (gastroesophageal reflux disease) Gout Hypertension Obesity (BMI 30.0-34.9) PAF (paroxysmal atrial fibrillation) Surgical History H/O colonoscopy H/O esophagogastroduodenoscopy S/P angioplasty with stent per [facility] note: Non-ST segment elevation myocardial infarction in 1996 undergoing PTCA of the right coronary artery in February of 1997 followed by recurrent symptoms PTCA and stenting of the right coronary artery and mid left anterior descending in April 1997. Repeat coronary intervention 1999, PCI to the LCX OM. Unstable angina presentation in January 2015 s/p PCI of the mid LAD with a NORMAN. S/P hernia repair S/P laparoscopic cholecystectomy Family History (Updated 12/31/20 @ 15:51 by MAURIZIO Potts) Father Lung cancer Mother Lung cancer Social History Smoking Status: Never smoker Hx Alcohol Use: No Hx Substance Use: No Preferred Language: [place] Communication Ability: Effective Valve Steamer Required: No Beliefs That Will Affect Care: None Current Living Situation: Alone Other Information That Helps Us Care for You: No Feels Safe at Home: Yes Safety Concerns: Feels Safe At This Time Assistive Devices: Glasses Review of Systems Review of Systems: All systems reviewed & are unremarkable except as noted in HPI & below Physical Exam Physical Exam: Physical Exam: Constitutional: appearance over nourished, healthy Ears, Nose, Mouth and Throat: mucous membranes moist, no injection and skin normal, eyes normal Cardiovascular: irregular Respiratory: clear to auscultation (CTA) and no rales, rhonchi or wheeze Musculoskeletal: no peripheral edema and good distal pulses Skin: no stigmata of neurocutaneous disease noted and normal and intact Eyes: extraocular muscles intact (EOMI) and pupils equal, round and reactive to light (PERRL) NEUROLOGIC EXAMINATION: Mental status: Alert and interactive Oriented to person Speech fluent with no evidence of aphasia Cranial Nerves smile eye brow raise slight flattening left nasolabial fold Reflexes: Deep tendon reflexes were symmetrical decreased Sensory: vibration intact Coordination: finger to nose, heel to restrepo intact Gait/Stance: Posture sitting up in bed Motor: Negative for pronator drift of out stretched arms with eyes closed. 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 hip flex right 5/5 left 4+/5 plantar flex ext 5/5 Results & Data ([facility]) Vital Signs (Past 12 Hours) Vital Signs Temp Pulse Pulse Resp BP Pulse Ox 01/01/21 11:18 36.6 C 54 L 18 170/75 H 97 01/01/21 08:00 59 L 01/01/21 07:55 36.9 C 58 L 19 153/69 H 97 01/01/21 07:09 36.4 C L 77 19 115/68 95 01/01/21 04:53 36.6 C 59 L 18 130/55 L 95 Laboratory Results Abnormal lab results 12/31/20 12/31/20 12/31/20 Range/Units 12:36 16:13 17:21 RBC (4.7-6.1) M/uL Hgb (14.0-18.0) g/dL Hct (42-52) % RDW Std Deviation (36.4-46.3) fL Plt Count (130-400) K/uL Person # (Auto) (0.11-0.59) K/uL PT (9.0-12.0) Seconds POC INR 2.6 H (0.9-1.1) INR (0.9-1.1) Chloride (98-107) mmol/L Creatinine (0.6-1.4) mg/dl Glucose (70-99) mg/dl POC Glucose 65 L* 102 H (70-99) mg/dl Hemoglobin A1c (4.5-5.6) % 12/31/20 12/31/20 12/31/20 Range/Units 19:03 20:01 21:04 RBC (4.7-6.1) M/uL Hgb (14.0-18.0) g/dL Hct (42-52) % RDW Std Deviation (36.4-46.3) fL Plt Count (130-400) K/uL Person # (Auto) (0.11-0.59) K/uL PT (9.0-12.0) Seconds POC INR (0.9-1.1) INR (0.9-1.1) Chloride (98-107) mmol/L Creatinine (0.6-1.4) mg/dl Glucose (70-99) mg/dl POC Glucose 126 H 147 H 131 H (70-99) mg/dl Hemoglobin A1c (4.5-5.6) % 12/31/20 01/01/21 01/01/21 Range/Units 22:15 05:26 05:26 RBC 3.32 L (4.7-6.1) M/uL Hgb 11.1 L (14.0-18.0) g/dL Hct 32.8 L (42-52) % RDW Std Deviation 50.4 H (36.4-46.3) fL Plt Count 120 L (130-400) K/uL Person # (Auto) 0.67 H (0.11-0.59) K/uL PT 19.8 H (9.0-12.0) Seconds POC INR (0.9-1.1) INR 2.1 H (0.9-1.1) Chloride (98-107) mmol/L Creatinine (0.6-1.4) mg/dl Glucose (70-99) mg/dl POC Glucose 127 H (70-99) mg/dl Hemoglobin A1c (4.5-5.6) % 01/01/21 01/01/21 01/01/21 Range/Units 05:26 05:26 07:14 RBC (4.7-6.1) M/uL Hgb (14.0-18.0) g/dL Hct (42-52) % RDW Std Deviation (36.4-46.3) fL Plt Count (130-400) K/uL Person # (Auto) (0.11-0.59) K/uL PT (9.0-12.0) Seconds POC INR (0.9-1.1) INR (0.9-1.1) Chloride 108 H (98-107) mmol/L Creatinine 1.51 H (0.6-1.4) mg/dl Glucose 142 H (70-99) mg/dl POC Glucose 154 H (70-99) mg/dl Hemoglobin A1c 6.4 H (4.5-5.6) % 01/01/21 Range/Units 11:17 RBC (4.7-6.1) M/uL Hgb (14.0-18.0) g/dL Hct (42-52) % RDW Std Deviation (36.4-46.3) fL Plt Count (130-400) K/uL Person # (Auto) (0.11-0.59) K/uL PT (9.0-12.0) Seconds POC INR (0.9-1.1) INR (0.9-1.1) Chloride (98-107) mmol/L Creatinine (0.6-1.4) mg/dl Glucose (70-99) mg/dl POC Glucose 233 H (70-99) mg/dl Hemoglobin A1c (4.5-5.6) % Diagnostic Findings MRI brain-No acute intracranial findings No evidence of acute or subacute infarction No evidence of intracranial mass Old cerebellar infarcts CTA head- No acute intracranial abnormality. Old cerebellar infarcts. No significant stenosis, occlusion, or aneurysm within the [place]. CTA neck- mild to moderate stenosis left vert TTE- 60-65% No ASD EEG- preliminary no seizure focus
[2021-01-01] MEDS ORDERED: WARFARIN SOD 4 MG TAB PO SCH (16:00)
[2021-01-01] MEDS ORDERED: INSULIN GLARGINE SOLOSTAR 100 UNITS/ML 3 ML PEN SC SCH (21:00)
[2021-01-01] MEDS: ATORVASTATIN 20 MG TAB PO SCH (21:34)
[2021-01-01] MEDS: allopurinoL 300 MG TAB PO SCH (21:35)
[2021-01-01] MEDS: GABAPENTIN 300 MG CAP PO SCH (21:35)
[2021-01-02 06:31] LABS: Basophils # (auto) 0.03 K/uL (0-0.2); Basophils % (auto) 0.4 %; Eosinophils # (auto) 0.35 K/uL (0-0.5); Eosinophils % (auto) 5.1 %; Hematocrit (blood only) 33.7 % (42-52); Hemoglobin 11.6 g/dL (14.0-18.0); Immature Granulocytes # (auto) 0.01 K/uL (0.00-0.02); Immature Granulocytes % (auto) 0.1 %; Lymphocytes # (auto) 2.03 K/uL (1.2-3.4); Lymphocytes % (auto) 29.6 %; Mean Corpuscular Hemoglobin 33.6 pg (25-34); Mean Corpuscular Hgb Conc 34.4 g/dL (32-36); Mean Corpuscular Volume 97.7 fL (80-100); Mean Platelet Volume 10.3 fL (7.4-10.4); Monocytes # (auto) 0.56 K/uL (0.11-0.59); Monocytes % (auto) 8.2 %; Neutrophils # (auto) 3.87 K/uL (1.4-6.5); Neutrophils % (auto) 56.6 %; Platelet Count 109 K/uL (130-400); RDW Standard Deviation 49.8 fL (36.4-46.3); Red Blood Count 3.45 M/uL (4.7-6.1); White Blood Count 6.85 K/uL (4.8-10.8)
[2021-01-02 06:40] LABS: INR 1.8 (0.9-1.1); Prothrombin Time 17.6 Seconds (9.0-12.0)
[2021-01-02 07:05] LABS: BUN Creatinine Ratio 12.4 (10-20); Calcium 8.8 mg/dl (8.5-10.1); Creatinine Clr Calc Pharmacy 48.7 ml/min; Est GFR (Non-African American) 46.6; Potassium 4.5 mmol/L (3.5-5.1)
[2021-01-02] MEDS: INSULIN ASPART 100 UNITS/ML 3 ML PEN SC SCH ×2 (08:02→12:05)
[2021-01-02] MEDS: INSULIN GLARGINE SOLOSTAR 100 UNITS/ML 3 ML PEN SC SCH (08:04)
[2021-01-02] MEDS: CYANOCOBALAMIN 500 MCG TABLET (VITAMIN B-12) PO SCH (08:06)
[2021-01-02] MEDS: CHOLECALCIFEROL 400 UNITS 10 MCG TAB PO SCH (08:06)
[2021-01-02] MEDS: CLOPIDOGREL BISULFATE 75 MG TAB PO SCH (08:06)
[2021-01-02] MEDS: LOSARTAN POTASSIUM 25 MG TAB PO SCH (08:07)
[2021-01-02] MEDS: FERROUS SULFATE 325 MG TAB PO SCH (08:08)
[2021-01-02] MEDS ORDERED: amLODIPine BESYLATE 5 MG TAB PO SCH (09:00)
[2021-01-02] MEDS: carvediloL 3.125 MG TAB PO SCH (10:20)
--- NOTE | 2021-01-02 10:56 | Pharmacy Report ---
Pharmacy Glycemic Short Note 2 - Date of Service January 02, 2021 - Glycemic Short BSG Results (Last 24 hours): 01/01/21 01/01/21 01/01/21 11:17 16:11 20:46 Glucose POC Glucose 233 H 172 H 145 H 01/02/21 01/02/21 05:55 06:59 Glucose 139 H POC Glucose 154 H OUTPATIENT ANTIDIABETIC REGIMEN: * NPH unknown amount in AM + 60 units before dinner * Novolog unknown amount in AM + 10 units with dinner * Metformin 500 mg PO QID * HbA1c pending ASSESSMENT: 01/02: * 59 units SQ insulin administered over last 24 hrs while tolerating a diet * BSGs have been well controlled * Fasting BSG slightly above goal this AM with 35 units basal insulin on board - will continue a similar dose but slightly less as today's FBS is not reflective of steady state * Post-prandial BSGs well controlled w/ current Novolog parameters 01/01: * BSGs appeared to stabilize last evening and continue this morning was a fasting BSG of 142. I discussed with provider and it was decided to proceed with adding basal insulin as well as covering carbs. I will be somewhat conservative in dosing given the hypoglycemic events yesterday. * Patient is tolerating a diet. Lunch BSG elevated at 233 mg/dL, will tighten NovoLog scale. 12/31 * 70 yo M admitted secondary to stroke-like symptoms. Pharmacy is consulted for inpatient glycemic management. Spoke with both attending and PAPrakashC, believe patient was hypoglycemic prior to admission. * Per H&P: patient was itchy overnight and this is a sign of low blood sugar to him. He drank some orange juice and felt better so went back to sleep. Then states he woke up a few hours later on the floor without any recollection of these events. * Random BSG was 151 mg/dL upon admission. No insulin was received and his BSG dropped to 41 mg/dL. It improved with orange juice up to 102 mg/dL. * Per physician, patient will have more frequent BSG checks starting at every 1 hour and then spacing out throughout the night. Patient is not to receive any basal insulin or a carbohydrate ratio for the time being. * Most recent BSG was 131 mg/dL. * Will utilize a less stringent goal range of 120 - 160 mg/dL to prevent any further hypoglycemia. Starting patient on Novolog only with a correction factor based on weight/stress of one. PLAN FOR INPATIENT GLYCEMIC CONTROL: * Hold outpatient oral diabetes medications * Basal insulin * Lantus 30 units Q AM * Bolus insulin * NovoLog per scale ACHS or Q6hrs while NPO * Goal Range: Low 120 mg/dL - High 160 mg/dL * Correction Factor: 25 mg/dL/unit * Prandial Insulin: Per carb ratio of 1 unit per 8 grams CHO consumed * Please note that the plan above was derived based on current level of insulin resistance and hospital stress. These recommendations are appropriate for inpatient admission only. Plan of care upon discharge will need to be reassessed to avoid potential outpatient hypo/hyperglycemia. PLAN FOR DISCHARGE: * Given attainment of goal A1c, one would be inclined to continue his home regimen. But in light of his recent severe symptomatic hypoglycemic event, it may be best to scale back his home insulin doses - with further upwards titration by outpt provider. At this point, it looks like he may require ~60- 70 units of insulin per day (which would be similar to his outpt regimen): * I might consider changing his NPH to 25 units w/ breakfast + 12 units w/ dinner * May also consider Novolog 7 units with each meal.
[2021-01-02] MEDS: ISOSORBIDE MONO EXTENDED REL 60 MG TABCR PO SCH (12:07)
[2021-01-02] MEDS: PANTOprazole 40 MG TAB PO SCH (12:07)
--- NOTE | 2021-01-02 14:56 | Hospitalist Progress Note ---
Date of Service January 02, 2021 Assessment & Plan (1) Stroke-like symptoms: (2) LOC (loss of consciousness): Present on admission after found on the floor in the middle of the night and stroke like symptoms Possible related to hypoglycemia, but need to r/o seizure and acute CVA Glucose [address]/CTA head showed no acute intracranial abnormality. 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 MRI of head showed no acute intracranial findings. No evidence of acute or subacute infarction ECHO showed Echo showed the end atrial septum is intact with no evidence for atrial septal defect, no entered atrial shunt with Ejection fraction 60 to 65% EEG showed no evidence for a focal generalized encephalopathy no evidence for potentially epileptogenic activity No focal neuro deficit on exam Neuro on board No evidenced to suggest seizure or stroke/TIA as per Neuro Continue home dose plavix and coumadin Clinically stable (3) Diabetes type 2, controlled: Hypoglycemia Most recent Hba1c 6.4 Glucose 41 on admission Pharmacy on board for glycemic management case discussed with pharmacy that recommended to adjust NPH to 25 units w/ breakfast + 12 units w/ dinner and Novolog 7 units with each meal. Continue monitor BS Will arrange with the [facility] clinic to manage his insulin (4) PAF (paroxysmal atrial fibrillation): Rate controlled on carvedilol Anticoagulated on Coumadin with INR 1.8 Follow up with the coumadin clinic (5) Hypertension: BP elevated possible related to hospital setting Pt is very anxious to go home Continue home doses of carvedilol and isosorbide, Losartan and amlodipine Amlodipine increased to 5 mg, but pt said that he was on 5 mg before that was decreased to half by cardiology due to hypotension Continue monitor BP (6) Hypomagnesemia: MG +1.5 on admission Mg 1.9 today stable (7) CAD (coronary artery disease): Asymptomatic Continue Plavix, statin, beta-nba, nitrate (8) CKD (chronic kidney disease), stage III: Baseline creatinine ~1.4 Creatinine noted be 1.4 today Monitor renal functions Bradycardia Asymptomatic Will consider to decrease the carvedilol to half if remain bradycardia Continue monitor HR (9) DVT prophylaxis: Anticoagulated on Coumadin, INR 1.8 Disposition Discharge home today Admission and Anticipated Discharge Date Admission Date: December 31, 2020 Subjective Pt was seen an examined for follow up stroke like symptoms and low BS Sitting in chair with no acute distress pt said that he feels fine He said that he slept well last night He has been walking in the hallway with no distress He said that he is ready to go home today Denies any chest pain, palpitation, dizziness and SOB Physical Exam Physical Exam: General- No acute distress Head- atraumatic Eyes- PERRL, EOMI, ENT- oropharynx clear Neck- supple, no JVD Lungs- clear to auscultation Heart- regular rhythm; no murmur Abdomen- normal bowel sounds, soft, nontender Extremities- no calf tenderness Neuro- alert, oriented x 3; PERRL, EOMI; no facial palsy; no dysarthria Skin- warm & dry Results & Data Results & Data ([facility]) Vital Signs (Past 12 Hours) Vital Signs Temp Pulse Pulse Pulse Resp BP Pulse Ox 01/02/21 14:48 51 L 01/02/21 11:01 36.6 C 51 L 19 154/64 H 95 01/02/21 08:10 48 L 49 L 161/72 H 96 01/02/21 07:03 36.6 C 50 L 18 143/62 H 95 01/02/21 03:50 36.5 C 56 L 16 117/47 L 97
[2021-01-02] MEDS ORDERED: STROKE PATIENT DISCHARGE STA (15:40)
--- NOTE | 2021-01-02 16:53 | Electrocardiogram Report ---
Test Reason : Blood Pressure : / mmHG Vent. Rate : 048 BPM Atrial Rate : 048 BPM P-R Int : 172 ms QRS Dur : 092 ms QT Int : 452 ms P-R-T Axes : 056 063 -34 degrees QTc Int : 403 ms Sinus bradycardia with sinus arrhythmia Nonspecific T wave abnormality Abnormal ECG When compared with ECG of 01-JAN-2021 07:28, No significant change was found Confirmed by Tiago Domínguez ([id number] on 01/02/2021 4:53:09 PM Referred By: REFERRED SELF Confirmed By:Clark Domínguez
--- NOTE | 2021-01-03 09:22 | Discharge Summary ---
Date of Service January 02, 2021 Admission HPI Per Admitting Provider 70-year-old male with PMH DM type I on insulin, CAD, remote history of CVA, CKD stage III, paroxysmal atrial fibrillation anticoagulated on Coumadin, HTN, and other problems listed below who presents to the ED for evaluation of strokelike symptoms. Patient reports that he woke up around 3 AM reporting that he was itchy all over. Patient reports that this is a sign his blood sugar is low. He did not take his blood sugar however did drink some orange juice and felt improved and went back to bed. Patient notes that while he was walking to get the orange juice, he felt very unsteady on his feet. Patient reports he woke up a few hours later and was on the floor. He does not remember getting up again or how he got to the floor. He was able to get up from the floor and went back to bed. He then woke up around 8 AM. Reports that he continued to feel unsteady on his feet and was bumping into things. He reports that his left hand felt numb and tingly. He also has neuropathy and reports increased numbness and tingling to his left foot. He reports checking his blood sugar at this time and it was 147. Patient then called EMS and presented to the ED for further evaluation. Patient reports he otherwise has been feeling well recently. Patient states that he did a lot of activity outside yesterday with removing snow. Patient denies chest pain or shortness of breath. No lightheadedness, dizziness, diaphoresis. Denies abdominal pain, nausea, vomiting, diarrhea. No other recent illnesses, fevers, chills. Denies urinary symptoms. In the ED, head CT and head and neck CTAs are unremarkable for acute findings. Stroke alert was called however patient was not felt to be a TPA candidate secondary to being anticoagulated on Coumadin and also being outside of the timeframe. Patient was also found to be hypertensive and received hydralazine 5 mg with improvement in BP. Labs are unremarkable/at patient's baseline. Patient was also given IVF. Admission Exam Per Admitting Provider Constitutional: WD/WN, vitals as above Eyes: PERRL, conjunctivae normal, anicteric sclerae ENMT: external ear and nose normal, oropharynx normal Respiratory: normal respiratory effort, lungs clear to auscultation Cardiovascular: regular rate and regular rhythm Vessels: normal peripheral pulses Extremities: no edema Gastrointestinal:normal bowel sounds, soft, nontender, no hepatosplenomegaly Musculoskeletal: no cyanosis or clubbing, extremities motor strength 5/5 Skin: no rashes, warm and dry Neurologic: PERRL, EOMI, accommodation nl, no face palsy, no dysarthria moves all extremities and awake Motor/Sensory: + pronator drift (mild, LUE) Cranial Nerves: tongue midline and able to elevate shoulders bilaterally Coordination: + abnormal ganegb-te-pyah test (mild difficulty with left hand); normal tsoz-ia-rvhj test mild difficulty with fine motor movement of left hand Psychiatric: A+Ox3, euthymic affect Principal Diagnosis LOC (loss of consciousness): Diabetes type 2, controlled: PAF (paroxysmal atrial fibrillation): Hypertension: Hypomagnesemia: CAD (coronary artery disease): CKD (chronic kidney disease), stage III: Bradycardia Discharge Exam General- No acute distress Head- atraumatic Eyes- PERRL, EOMI, ENT- oropharynx clear Neck- supple, no JVD Lungs- clear to auscultation Heart- regular rhythm; no murmur Abdomen- normal bowel sounds, soft, nontender Extremities- no calf tenderness Neuro- alert, oriented x 3; PERRL, EOMI; no facial palsy; no dysarthria Skin- warm & dry Discharge Data Allergies Allergy/AdvReac Type Severity Reaction Status Date / Time LEBRON Inhibitors Allergy Unknown COUGH Verified 12/31/20 14:02 Consultations 12/31/20 13:51 ED Decision to Admit Stat 12/31/20 17:35 Consult Case Management - Discharge Planning Routine Consult Neurology Routine Ordered Studies 12/31/20 12:19 CT angio head w con Stat CT angio neck with con Stat CT head/brain wo con Stat 12/31/20 14:54 MR brain wo/w con Routine MRI OF THE BRAIN WITHOUT AND WITH IV CONTRAST CLINICAL HISTORY: Strokelike symptoms. Left arm numbness. COMPARISON STUDY: Noncontrast CT scan dated 12/31/2020, MRI the brain dated 11/16/2010 TECHNIQUE: MRI of the brain was performed from the vertex to the skull base utilizing various T1 and T2 weighted sequences. Following the IV administration of 10 mL of Gadavist contrast, additional enhanced images were obtained. FINDINGS: Sagittal T1, axial diffusion, proton density and T2 weighted axial, coronal FLAIR, and pre and post axial T1-weighted images were acquired. These were supplemented with post gadolinium coronal T1 weighted images. No intra or extra-axial mass lesions are visualized. Axial diffusion-weighted images reveal no evidence of acute or subacute infarction. There is no evidence of ventricular dilatation. Proton density T2-weighted and FLAIR images reveal scattered foci of increased T2 signal within the white matter, likely on a small vessel basis. There are no abnormal there is an old left PICA distribution cerebellar infarct. There are old right cerebellar lacunar infarcts. Flow voids. There is no evidence of pathologic enhancement. IMPRESSION: 1. No acute intracranial findings 2. No evidence of acute or subacute infarction 3. No evidence of intracranial mass 4. Old cerebellar infarcts ACT 112: Negative or not required by law. Electronically signed by: Emiliano Martin M.D. 12/31/2020 5:12 PM Dictated: 12/31/20 1703Transcribed: 12/31/[address] ANGIOGRAM OF THE NECK CLINICAL HISTORY: Strokelike symptoms. Left upper extremity numbness. COMPARISON STUDY: No priors. TECHNIQUE: Following the IV administration of 120 of Optiray 320, CT angiogram of the neck was performed from the aortic arch to the skull base. Images are reviewed in the axial, sagittal, and coronal planes. 3-D MIPS images are created and assessed. IV contrast was administered without complication. All measurements were calculated based on NASCET criteria. A dose lowering technique was utilized adhering to the principles of ALARA. CT DOSE: 1255.07 mGy.cm FINDINGS: Thoracic aorta: There is atherosclerotic calcification of the thoracic aorta. Visualized portions of the thoracic aorta are normal in caliber. The aortic arch demonstrates standard 3-vessel anatomy. Right carotid arterial system: The right common carotid artery is widely patent, as are the right internal and external carotid arteries. Calcified plaque is noted in the carotid bulb. Left carotid arterial system: The left common carotid artery is widely patent, as are the internal and external carotid arteries. Calcified plaque is noted in the carotid bulb. Vertebral arteries: There is mild to moderate stenosis at the origin of the right vertebral artery. The vertebral arteries are otherwise widely patent in the neck and codominant. Subclavian arteries: Widely patent bilaterally. Intracranial vasculature: The imaged intracranial vessels at the skull base are patent. Jugular veins: Widely patent bilaterally. Brain parenchyma: Left cerebellar encephalomalacia is consistent with a remote insult. Lung apices: Partially visualized upper lobe lung parenchyma appears clear. Soft tissues: The visualized pharyngeal soft tissues are normal in appearance noting angiographic phase technique. The oropharyngeal airway appears widely patent. The salivary and thyroid glands are normal in appearance. No cervical lymphadenopathy is seen. Skeletal structures: The skeletal structures are osteopenic. The visualized calvarium at the skull base appears intact. The imaged cervical spine is maintained noting multilevel spondylosis. No lytic or blastic lesion is seen. IMPRESSION: 1. There is mild to moderate stenosis at the origin of the right vertebral artery. 2. Otherwise unremarkable CT angiogram of the neck. ACT 112: Negative or not required by law. Electronically signed by: Ruddy Coello M.D. 12/31/2020 12:51 PM Dictated: 12/31/20 1237Transcribed: 12/31/[address], HEAD CTA HISTORY: Left arm numbness. Stroke Like Symptoms TECHNIQUE: Multiaxial CT images of the head were performed both before and after the intravenous administration of contrast to evaluate the major cerebral vessels. Maximum intensity projection images were also obtained. A dose lowering technique was utilized adhering to the principles of ALARA. COMPARISON: None. FINDINGS: There is no mass, hematoma, midline shift, or acute infarct. Old infarct within the left cerebellar hemisphere. There is also an old lacunar infarct within the right cerebellar hemisphere. Visualized intracranial internal carotid arteries, distal vertebral arteries, and basilar artery are widely patent. There is no significant stenosis, occlusion, or aneurysm seen within the bilateral ACAs, MCAs, or instrument lens generator. The major dural venous sinuses appear patent. Mild to moderate calcified plaque within the bilateral carotid siphons. IMPRESSION: 1. No acute intracranial abnormality. 2. Old cerebellar infarcts. 3. No significant stenosis, occlusion, or aneurysm within the [place]. ACT 112: Negative or not required by law. ACT 112: Negative or not required by law. Electronically signed by: Salas Gómez M.D. 12/31/2020 12:53 PM Dictated: 12/31/20 1236Transcribed: 12/31/[address], HEAD CTA HISTORY: Left arm numbness. Stroke Like Symptoms TECHNIQUE: Multiaxial CT images of the head were performed both before and after the intravenous administration of contrast to evaluate the major cerebral vessels. Maximum intensity projection images were also obtained. A dose lowering technique was utilized adhering to the principles of ALARA. COMPARISON: None. FINDINGS: There is no mass, hematoma, midline shift, or acute infarct. Old infarct within the left cerebellar hemisphere. There is also an old lacunar infarct within the right cerebellar hemisphere. Visualized intracranial internal carotid arteries, distal vertebral arteries, and basilar artery are widely patent. There is no significant stenosis, occlusion, or aneurysm seen within the bilateral ACAs, MCAs, or instrument lens generator. The major dural venous sinuses appear patent. Mild to moderate calcified plaque within the bilateral carotid siphons. IMPRESSION: 1. No acute intracranial abnormality. 2. Old cerebellar infarcts. 3. No significant stenosis, occlusion, or aneurysm within the [place]. ACT 112: Negative or not required by law. ACT 112: Negative or not required by law. Electronically signed by: Salas Gómez M.D. 12/31/2020 12:53 PM Dictated: 12/31/20 1236Transcribed: 12/31/20 1238 XR chest 1V portable HISTORY: Stroke Like Symptoms COMPARISON: Chest 10/05/2016. FINDINGS: No pneumothorax. No pleural effusions. The cardiac silhouette remains mildly enlarged. There is mild diffuse interstitial thickening which is likely chronic. No new focal lung consolidations to suggest pneumonia. No evidence for pulmonary edema. There are old, healed right-sided rib fractures. Stable punctate metallic density overlying the left lung apex. IMPRESSION: No significant change compared to the prior study. No acute process. ACT 112: Negative or not required by law. Electronically signed by: Salas Gómez M.D. 12/31/2020 1:53 PM Dictated: 12/31/20 1352Transcribed: 12/31/20 1352 Hospital Course (1) Stroke-like symptoms: (2) LOC (loss of consciousness): Present on admission after found on the floor in the middle of the night and stroke like symptoms Possible related to hypoglycemia, but need to r/o seizure and acute CVA Glucose [address]/CTA head showed no acute intracranial abnormality. 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 MRI of head showed no acute intracranial findings. No evidence of acute or subacute infarction ECHO showed Echo showed the end atrial septum is intact with no evidence for atrial septal defect, no entered atrial shunt with Ejection fraction 60 to 65% EEG showed no evidence for a focal generalized encephalopathy no evidence for potentially epileptogenic activity No focal neuro deficit on exam Neuro on board No evidenced to suggest seizure or stroke/TIA as per Neuro Continue home dose plavix and coumadin Clinically stable (3) Diabetes type 2, controlled: Hypoglycemia Most recent Hba1c 6.4 Glucose 41 on admission Pharmacy on board for glycemic management case discussed with pharmacy that recommended to adjust NPH to 25 units w/ breakfast + 12 units w/ dinner and Novolog 7 units with each meal. Continue monitor BS Will arrange with the [facility] clinic to manage his insulin (4) PAF (paroxysmal atrial fibrillation): Rate controlled on carvedilol Anticoagulated on Coumadin with INR 1.8 Follow up with the coumadin clinic (5) Hypertension: BP elevated possible related to hospital setting Pt is very anxious to go home Continue home doses of carvedilol and isosorbide, Losartan and amlodipine Amlodipine increased to 5 mg, but pt said that he was on 5 mg before that was decreased to half by cardiology due to hypotension Continue monitor BP (6) Hypomagnesemia: MG +1.5 on admission Mg 1.9 today stable (7) CAD (coronary artery disease): Asymptomatic Continue Plavix, statin, beta-nba, nitrate (8) CKD (chronic kidney disease), stage III: Baseline creatinine ~1.4 Creatinine noted be 1.4 today Monitor renal functions Bradycardia Asymptomatic Will consider to decrease the carvedilol to half if remain bradycardia Continue monitor HR (9) DVT prophylaxis: Anticoagulated on Coumadin, INR 1.8 Disposition Discharge home today Total Time Total Time Spent Total Time Spent (In Minutes): 35 minutes Total Time Includes: Examination of the Patient, Discharge Planning, Medication Reconciliation, Communication With Other Providers and Other Discharge Plan Discharge Items Patient Disposition: Home - Self-Care Reason For Visit: STROKE LIKE SYMPTOMS Discharge Diagnosis: LOC (loss of consciousness): Diabetes type 2, controlled: PAF (paroxysmal atrial fibrillation): Hypertension: Hypomagnesemia: CAD (coronary artery disease): CKD (chronic kidney disease), stage III: Bradycardia Condition on Discharge: Fair Activity: Resume your previous activity Non-emergency contact: Primary Care Provider Call non-emergency contact if: you have any medication questions Follow-up/Referrals: Bradley Manley MD [Primary Care Provider] - 03/02/21 12:20 pm (Date & Time 01/07/2021 12:20 PM Provider Bradley Manley MD Department Family Practice [facility] ) Diet: Carb Consistent or DM2 Addtl Attending Provider Instructions: Follow up with your primary care provider Dr. Manley on 01/07/2021 at 12:20 PM Follow up with the coumadin clinic to monitor your PT/INR Follow up with the [facility] clinic to monitor your blood sugar and adjust your insulin ( Office will call you for the appointment) Continue monitor your blood pressure and your heart rate and bring the log at your next appointment with your provider If your Heart rate remain low and you develop any symptoms, your provider will adjust the carvedilol Continue monitor your blood sugar Follow a healthy diabetes diet and limited concentrated sweet intake Fall precaution Your insulin was adjusted take NPH to 25 units w/ breakfast and 15 units w/ dinner. (Your will resume the NPH insulin in the morning ) You will take Novolog 7 units with each meal. (Please continue to monitor your sugar and the [facility] clinic will contact you to adjust your insulin) Pending Studies at Discharge: No Stand-Alone Forms: [facility], Smoking Cessation Medications and DC Order Prescriptions: Continued metformin 500 mg tablet 500 mg PO QID RF: 0 atorvastatin 20 mg tablet 20 mg PO HS RF: 0 amlodipine 2.5 mg tablet 2.5 mg PO QAM RF: 0 clopidogrel 75 mg tablet 75 mg PO QAM RF: 0 carvedilol 3.125 mg tablet 3.125 mg PO BID RF: 0 warfarin 4 mg tablet See Rx Instructions .ROUTE .COMPLEX RF: 0 pantoprazole 20 mg tablet,delayed release (DR/EC) 20 mg PO QDL RF: 0 isosorbide mononitrate 60 mg tablet extended release 24 hr 60 mg PO QDL RF: 0 losartan 25 mg tablet 25 mg PO QAM RF: 0 nitroglycerin 0.4 mg tablet, sublingual 0.4 mg sublingual Q5M PRN (Reason: Chest Pain) RF: 0 gabapentin 300 mg capsule 300 mg PO HS RF: 0 allopurinol 300 mg Tablet 300 mg PO HS RF: 0 cyanocobalamin (vitamin B-12) [Vitamin B-12] 1,000 mcg Tablet 1,000 mcg PO QAM RF: 0 ferrous sulfate 325 mg (65 mg iron) Tablet 325 mg PO BID RF: 0 cholecalciferol (vitamin D3) 10 mcg (400 unit) Tablet 10 mcg PO DAILY RF: 0 Changed insulin aspart U-100 [Novolog U-100 Insulin aspart] 100 unit/mL Solution 7 sliding scale dose SUBCUT AC Qty: 10 RF: 0 Novolin N NPH U-100 Insulin 100 unit/mL suspension 30 unit SUBCUT UD Qty: 10 RF: 0 Discharge Orders: Discharge Order (Routine); Ordered 01/02/21 Ordered By: Roberta Hayden Admission Data Admit Date/Time: 12/31/20 14:07 Attending Provider: Roberta Hayden Admit Provider: Kamilah Fay Primary Care Provider: Bradley Manley Other Providers: Kamilah Fay ; Vicente Beauchamp Other Interventions: Discharge Summary Assessment (RN) Last Done: 01/02/21 15:49
== END 2021-01-02 16:06 | disposition home or self-care (01) | DRG 639 ==
LOC: ED 11:37 → 2E 14:07 → SUATTDRO 14:07 → 2E 15:35